=== PATIENT | female | born 1950 | race Caucasian/White ===

== ENCOUNTER 2020-06-22 06:49 | Outpatient (NON) | payer MEDICARE, OTHER, SELFPAY ==
[2020-06-22 16:41] LABS: SARS-CoV-2 RNA PCR Negative
== END 2020-06-22 06:50 ==
PROVIDERS: Visit Provider Family Medicine
DX: R05 Cough (principal); Z20.828 Contact with and (suspected) exposure to other viral communicable diseases
CPT/HCPCS: 87635; C9803; U0003

== ENCOUNTER → 2020-07-15 08:25 | Outpatient (CLI) | payer MEDICARE, OTHER, SELFPAY ==
--- NOTE | ~2020-07-15 | US_ITS ---
EXAMINATION: US abdomen complete EXAM DATE: 07/15/2020 09:17 INDICATION: Left renal mass. TECHNIQUE: Multiple grayscale and Doppler images of the complete abdomen were obtained (by a technolo gist who performed the scan) and subsequently reviewed. Comparison is made to prior examination from 07/15/2016, kidney ultrasound. FINDINGS: The abdominal aorta is normal in caliber. Visualized portion IVC is patent. The pancreatic head a nd body are normal in appearance. The pancreatic tail is not visualized. The liver has normal echogenicity and contour. There are no focal liver lesions identified. There is no evidence of intrahepatic biliary duct dilation. Portal venous flow was seen in the hepatopedal , normal direction and has normal Doppler waveform. Common bile duct measures 9 mm, which is normal for postcholecystectomy status. The gallbladder sarah a is unremarkable. Right kidney: There is normal contour and echogenicity. It measures 8.0 x 4.0 x 4.1 centimeters. T here are no focal renal lesions identified. There is no hydronephrosis. Left kidney: There is normal contour and echogenicity. It measures 8.7 x 5.4 x 4.6 centimeters. Th ere are no focal renal lesions identified. There is no hydronephrosis. The spleen measures 8.2 x 3.2 centimeters and is morphologically normal. IMPRESSION: Unremarkable complete abdominal ultrasound exam. Reviewed, dictated and finalized at location A.
== END ==
PROVIDERS: PCP Family Medicine; Visit Provider Family Medicine
DX: E27.8 Other specified disorders of adrenal gland (principal)
CPT/HCPCS: 76700

== ENCOUNTER 2021-08-16 16:55 | Outpatient (CLI) | payer MEDICARE, OTHER, SELFPAY ==
--- NOTE | ~2021-08-16 | MM_ITS ---
EXAMINATION: MM screening lalita BI w valencia HISTORY: Screening TECHNIQUE: Craniocaudal and mediolateral oblique 3-D tomosynthesis images were obtained and synthetic 2-D images were generated. CAD analysis was submitted and interpreted. COMPARISON: Comparison to multiple prior studies sequentially, with oldest reviewed study dated 05/03. BREAST PARENCHYMAL COMPOSITION: There are scattered areas of fibroglandular density. FINDINGS: There is no evidence of suspicious mass, calcification, or architectural distortion to sugg est malignancy in either breast. There has been no suspicious interval change. IMPRESSION: 1. No mammographic evidence of malignancy. 2. Recommend routine screening mammography in one year. BI-RADS Category 1: Negative Reviewed, dictated and finalized at location A.
== END 2021-08-16 16:56 | disposition home or self-care (01) ==
LOC: ANHIMG 16:57
PROVIDERS: PCP Family Medicine; Visit Provider Family Medicine
DX: Z12.31 Encounter for screening mammogram for malignant neoplasm of breast (principal)
CPT/HCPCS: 77063; 77067

== ENCOUNTER 2022-11-28 16:10 | Outpatient (CLI) | payer MEDICARE, SELFPAY ==
--- NOTE | ~2022-11-28 | MM_ITS ---
EXAMINATION: MM screening lalita BI w valencia HISTORY: Screening mammogram TECHNIQUE: Craniocaudal and mediolateral oblique 3-D tomosynthesis images were obtained and synthetic 2-D images were generated. CAD analysis was submitted and interpreted. COMPARISON: 08/2021, 08/01/2019, 07/08/2018 bilateral screening mammogram examinations BREAST PARENCHYMAL COMPOSITION: There are scattered areas of fibroglandular density. FINDINGS: There is no evidence of suspicious mass, calcification, or architectural distortion to sugg est malignancy in either breast. There has been no suspicious interval change. IMPRESSION: 1. No mammographic evidence of malignancy. 2. Recommend routine screening mammography in one year. BI-RADS Category 1: Negative Reviewed, dictated and finalized at location A. NTIFIC WRITER
== END 2022-11-28 16:11 | disposition home or self-care (01) ==
PROVIDERS: PCP Family Medicine; Visit Provider Family Medicine
DX: Z12.31 Encounter for screening mammogram for malignant neoplasm of breast (principal)
CPT/HCPCS: 77063; 77067

== ENCOUNTER 2023-01-08 07:51 | Outpatient (CLI) | payer MEDICARE, SELFPAY ==
--- NOTE | ~2023-01-08 | DEXA_ITS ---
Bone Density Report Name: EVELINA DÍAZ Age: 72 Sex: Female Ethnicity: White Date of : 1950 Indication: postmenopausal; screening for osteoporosis; height loss; hysterectomy; Referring Provider: MAXIMILIANO, SELINA Orellana Study: Bone densitometry was performed. Exam Date: January 08, 2023 Accession number: [id number] Bone Density: Region BMD T-score Z-score Classification AP Spine(L1, L2) 1.049 0.6 2.7 Normal Femoral Neck (Left) 0.591 -2.3 -0.4 Osteopenia Total Hip (Left) 0.834 -0.9 0.7 Normal Femoral Neck (Right) 0.663 -1.7 0.2 Osteopenia Total Hip (Right) 0.859 -0.7 0.9 Normal Total Hip Mean 0.847 -0.8 0.8 Normal World Health Organization criteria for BMD impression classify patients as: Normal (T-score at or above -1.0), Osteopenia (T-score between -1.0 and -2.5), or Osteoporosis (T-score at or below -2.5). 10-year Fracture Risk(1): Major Osteoporotic Fracture 13% Hip Fracture 2.9% Reported Risk Factors: [place] (), Neck BMD=0.591, BMI=34.2 (1) FRAX(R) Version 3.08. Fracture probability calculated for an untreated patient. Fracture probability may be lower if the patient has received treatment. Previous Exams: Region Exam Age BMD T-score BMD Change BMD Change Date g/cm2 vs Baseline vs Previous Total Hip(Left) 01/08/2023 72 0.834 -0.9 -0.044 (-5.0%) -0.044 (-5.0%) 07/15/2019 69 0.878 -0.5 Total Hip(Right) 01/08/2023 72 0.859 -0.7 0.001 (0.1%) 0.001 (0.1%) 07/15/2019 69 0.859 -0.7 *Denotes significance at 95% confidence level, LSC for Total Hip = 0.027 g/cm2 Clinical Information Provided by Patient: Has the following medical conditions: Hysterectomy Patient maximum height was 66 Menopause Age: 29 No regular weight bearing exercise Does not regularly consume dairy products Drinks caffeinated beverages Onset of menses at age 12 Number of children 1 Impression: The patient has low bone mass, based on the Left Femoral Neck T-score. The patient has an estimated ten-year risk of hip fracture of 2.9% and an estimated ten-year risk of major fracture of 13%, based on the WHO FRAX algorithm. The BMD for the Total Hip(Left) decreased, changing by -5.0% since the last DXA exam. Discussion: BONE DENSITY IS LOW AT ONE OR MORE SKELETAL SITES. This patient's lowest T-score is low at one or more skeletal sites. It meets the World Health Organization's (WHO) criteria for ?low bone mass? (T-score between -1.0 and -2.5). The patient'
== END 2023-01-08 07:52 | disposition home or self-care (01) ==
LOC: ANHIMG 07:56
PROVIDERS: PCP Family Medicine; Visit Provider Family Medicine
DX: Z78.0 Asymptomatic menopausal state (principal); M85.852 Other specified disorders of bone density and structure, left thigh; M85.851 Other specified disorders of bone density and structure, right thigh
CPT/HCPCS: 77080

== ENCOUNTER 2023-02-14 16:00 | Outpatient (CLI) | payer MEDICARE, SELFPAY ==
--- NOTE | ~2023-02-14 | US_ITS ---
EXAMINATION: US carotid duplex BI DATE: 02/14/2023 17:12 INDICATION: Syncope and collapse. TECHNIQUE: Grayscale, color Doppler, and pulsed Doppler images of the cervical carotid arteries were obtained. The degree of vessel stenosis is placed in one of the following categories: normal, <50%, 5 0-69%, >=70% but less than near-occlusion, near-occlusion, or total occlusion. Note that percent sten osis relative to normal distal artery lumen diameter is indirectly measured from velocity measurement s as described by Deon, et al. Radiology 2003; 229:340-346. COMPARISON: Ultrasound 06/03/2019 FINDINGS: RIGHT: The right common carotid artery (CCA) peak systolic velocity (PSV) is 56 cm/s. The right internal car otid artery (ICA) PSV is 71 cm/s. The right ICA end-diastolic velocity (EDV) is 25 cm/s. The right IC A/CCA PSV ratio is 1.3. Grayscale and color Doppler images yield an estimate of <50% diameter reducti on from plaque in the ICA. There is antegrade flow in the right vertebral artery. LEFT: The left CCA PSV is 61 cm/s. The left ICA PSV is 70 cm/s. The left ICA EDV is 31 cm/s. The left ICA/C CA PSV ratio is 1.1. Grayscale and color Doppler images yield an estimate of <50% diameter reduction from plaque in the ICA. There is antegrade flow in the left vertebral artery. IMPRESSION: 1. <50% stenosis in the right internal carotid artery. 2. <50% stenosis in the left internal carotid artery. Reviewed, dictated and finalized at location A.
--- NOTE | ~2023-02-14 | MR_ITS ---
EXAMINATION: MR brain/brain stem wo con DATE: 02/14/2023 16:55 INDICATION: Syncope and collapse. TECHNIQUE: Magnetic resonance imaging (MRI) of the brain and brainstem was performed without intraven ous contrast. COMPARISON: Head CT 11/26/2011 FINDINGS: There are scattered areas of nonspecific increased T2-weighted signal intensity in the cere bral white matter. There is no intracranial hemorrhage, acute infarction, or abnormal intracranial ma ss lesion. The ventricles are normal in size. The paranasal sinuses are clear. There are likely snider es of ocular lens replacement surgeries. The mastoid air cells are normal. IMPRESSION: 1. Mild nonspecific cerebral white matter disease, which likely represents chronic small vessel ische yared disease. Reviewed, dictated and finalized at location A. IMPRESSION: 1. Mild nonspecific cerebral white matter disease, which likely represents prepress stripper brigido small vessel ischemic disease.
== END 2023-02-14 16:01 | disposition home or self-care (01) ==
PROVIDERS: PCP Family Medicine; Visit Provider Family Medicine
DX: I65.23 Occlusion and stenosis of bilateral carotid arteries (principal); R93.0 Abnormal findings on diagnostic imaging of skull and head, not elsewhere classified
CPT/HCPCS: 70551; 93880

== ENCOUNTER 2023-02-28 08:35 | Outpatient (CLI) | payer MEDICARE, SELFPAY ==
--- NOTE | 2023-02-28 | ECHO_ITS ---
Patient Info Name: Coretta Deluna Age: 72 years : 1950 Gender: Female Ht: 64 in Wt: 190 lbs BSA: 2.01 m2 HR: 58 bpm BP: 152 / 86 mmHg Heart Rhythm: Sinus Rhythm Exam Date: 02/28/2023 9:22 AM Exam Location: [facility] Patient Status: Outpatient Admit Date: 02/28/2023 Staff Ordering Physician: Foreign, Estella Orellana MD Earth Science Professor: Jackelyn Hernandez RDCS Attending Provider: Foreign, Estella Orellana MD Referring Physician: Foreign MERINO; Exam Type: CA echo doppler color flow Study Info Indications R55 - Syncope and collapse Complete two-dimensional, color flow and Doppler transthoracic echocardiogram is performed. Summary 1. Complete two-dimensional, color flow and Doppler transthoracic echocardiogram is performed. 2. Essentially unremarkable 2D Doppler echocardiogram. Left Ventricle Left ventricular chamber dimension is normal. Left ventricular systolic function is normal, estimated at 50-55%. The left ventricular diastolic function is normal. Right Ventricle Right ventricular chamber dimension is normal. Left Atria Left atrial chamber dimension is normal. Right Atria Right atrial chamber dimension is normal. Aortic Valve The aortic valve is normal. Pulmonic Valve The pulmonic valve is normal. Mitral Valve The mitral valve has normal leaflets. Tricuspid Valve The tricuspid valve leaflets are normal. Pericardium/Pleural The pericardium appears normal. Aorta The aortic root size at the sinus of Valsalva is normal. Left Ventricular Outflow Tract Name Value Normal LVOT 2D LVOT Diameter 1.7 cm LVOT Doppler LVOT Peak Gradient 3 mmHg LVOT Mean Gradient 2 mmHg LVOT VTI 24 cm LVOT VTI/AV VTI Ratio 0.7 LVOT Stroke Volume 57 ml LVOT CO 2.9 l/min LVOT CI 1.5 l/min/m2 Pulmonic Valve Name Value Normal RVOT Doppler RVOT Peak Gradient 1 mmHg PV Doppler PV Peak Gradient 3 mmHg Mitral Valve Name Value Normal MV Doppler MV Peak Gradient 4 mmHg MV Mean Gradient 1 mmHg MV Decel [place] 212 cm/s2 MV PHT 99 ms MV Area (PHT) 2.2 cm2 4.0-5.0 MV Area (Cont Eq VTI) 1.7 cm2 MV Diastolic Function MV E Peak Craig
== END 2023-02-28 08:36 | disposition home or self-care (01) ==
PROVIDERS: PCP Family Medicine; Visit Provider Family Medicine
DX: R55 Syncope and collapse (principal)
CPT/HCPCS: 93306

== ENCOUNTER → 2023-10-07 07:40 | Outpatient (CLI) | payer MEDICARE, SELFPAY ==
--- NOTE | ~2023-10-07 | US_ITS ---
US renal BI 10/07/2023 08:20 Procedure: Realtime transabdominal ultrasound of the kidneys and bladder. Indication: Abnormal blood chemistries. Comparison: 07/15/2020 Findings: Renal echotexture is normal bilaterally without hydronephrosis, contour deforming mass or r enal calculus. The right kidney measures 8.8 cm and left kidney measures 9.6 cm. Bladder within norm al limits. Impression: 1: Unremarkable renal ultrasound. No stones, masses or hydronephrosis. Reviewed, dictated and finalized at location L. PATIENT THERAPIST Impression: 1: Unremarkable renal ultrasound. No stones, masses or hydronephrosis.
== END ==
PROVIDERS: PCP Family Medicine; Visit Provider Internal Medicine Nephrology
DX: R79.89 Other specified abnormal findings of blood chemistry (principal); I10 Essential (primary) hypertension
CPT/HCPCS: 76775

== ENCOUNTER 2024-03-03 12:50 | Outpatient (CLI) | payer MEDICARE, SELFPAY ==
[2024-03-03 14:23] LABS: Anion Gap 6 mmol/L (4-12); Blood Urea Nitrogen 22 mg/dL (7-17); Calcium 8.9 mg/dL (8.4-10.2); Carbon Dioxide 28 mmol/L (22-30); Chloride 102 mmol/L (98-107); Estimated Glomerular Filt Rate 40; Glucose 85 mg/dL (65-110); Phosphorus 3.8 mg/dL (2.5-4.5); Potassium 3.4 mmol/L (3.4-5.0); Sodium 136 mmol/L (137-145)
[2024-03-03 14:23] LABS: Creatinine Urine 75.6 mg/dL
[2024-03-03 14:33] LABS: Parathyroid Intact 59.8 pg/mL (7.5-53.5)
[2024-03-03 14:39] LABS: Vitamin D 25 Hydroxy 29.6 ng/mL
[2024-03-03 15:03] LABS: Total Protein Urine Random < 5 mg/dL; Ur Ttl Prot Creatinine Ratio < 0.07 mg/mg (0-0.20)
== END 2024-03-03 12:51 | disposition home or self-care (01) ==
LOC: ANHLAB 12:55
PROVIDERS: PCP Nurse Practitioner Family; Visit Provider Internal Medicine Nephrology
DX: E55.9 Vitamin D deficiency, unspecified (principal); I12.9 Hypertensive chronic kidney disease with stage 1 through stage 4 chronic kidney disease, or unspecified chronic kidney disease; N18.32 Chronic kidney disease, stage 3b; N25.81 Secondary hyperparathyroidism of renal origin
CPT/HCPCS: 36415; 80069; 82306; 82570; 83970; 84156

== ENCOUNTER 2024-07-05 10:47 | Outpatient (CLI) | payer MEDICARE, SELFPAY ==
[2024-07-05 11:43] LABS: Albumin Level 4.1 g/dL (3.5-5.1); Anion Gap 10 mmol/L (4-12); Blood Urea Nitrogen 23 mg/dL (7-17); Calcium 9.3 mg/dL (8.4-10.2); Carbon Dioxide 28 mmol/L (22-30); Chloride 100 mmol/L (98-107); Estimated Glomerular Filt Rate 44; Glucose 88 mg/dL (65-110); Phosphorus 4.1 mg/dL (2.5-4.5); Potassium 3.3 mmol/L (3.4-5.0); Sodium 138 mmol/L (137-145)
[2024-07-05 11:44] LABS: Creatinine Urine 99.3 mg/dL; Total Protein Urine Random 6 mg/dL; Ur Ttl Prot Creatinine Ratio 0.06 mg/mg (0-0.20)
[2024-07-05 11:47] LABS: Cholesterol 233 mg/dL (0-200); HDL Direct 57 mg/dL; Triglycerides 136 mg/dL (<150)
[2024-07-05 12:01] LABS: LDL Cholesterol Direct 117 mg/dL
[2024-07-05 12:21] LABS: Thyroid Stimulating Hormone 0.805 uIU/mL (0.465-4.680)
== END 2024-07-05 10:48 | disposition home or self-care (01) ==
PROVIDERS: PCP Nurse Practitioner Family; Referring Provider Nurse Practitioner; Visit Provider Internal Medicine Nephrology
DX: E78.5 Hyperlipidemia, unspecified (principal); E03.9 Hypothyroidism, unspecified; I12.9 Hypertensive chronic kidney disease with stage 1 through stage 4 chronic kidney disease, or unspecified chronic kidney disease; N18.32 Chronic kidney disease, stage 3b
CPT/HCPCS: 36415; 80061; 80069; 82570; 84156; 84443

== ENCOUNTER 2024-10-20 13:25 | Outpatient (CLI) | payer MEDICARE, SELFPAY ==
[2024-10-20 14:13] LABS: Creatinine Urine 231.1 mg/dL
[2024-10-20 14:15] LABS: Total Protein Urine Random < 5 mg/dL; Ur Ttl Prot Creatinine Ratio < 0.02 mg/mg (0-0.20)
[2024-10-20 14:22] LABS: Complement C3 125 mg/dL (88-165)
[2024-10-20 14:27] LABS: Albumin Level 4.2 g/dL (3.5-5.1); Anion Gap 7 mmol/L (4-12); Blood Urea Nitrogen 30 mg/dL (7-17); Calcium 9.1 mg/dL (8.4-10.2); Carbon Dioxide 30 mmol/L (22-30); Chloride 102 mmol/L (98-107); Estimated Glomerular Filt Rate 38; Glucose 90 mg/dL (65-110); Phosphorus 4.3 mg/dL (2.5-4.5); Potassium 3.9 mmol/L (3.4-5.0); Sodium 139 mmol/L (137-145)
[2024-10-21 15:23] LABS: Creatinine, Random Urine 202 mg/dL (20-275); Total Prot/Creat ratio mg/mg 0.064 (0.024-0.184); Total Protein/Creatinine Ratio 64 mg/g creat (24-184)
[2024-10-22 04:38] LABS: Protein, Total 6.7 g/dL (6.1-8.1)
[2024-10-23 11:58] LABS: ANCA Screen NEGATIVE (NEGATIVE)
[2024-10-23 16:34] LABS: Anti Glomerular Basement Memb <1.0 AI
== END 2024-10-20 13:26 | disposition home or self-care (01) ==
PROVIDERS: PCP Family Medicine; Visit Provider Internal Medicine Nephrology
DX: R79.89 Other specified abnormal findings of blood chemistry (principal); I12.9 Hypertensive chronic kidney disease with stage 1 through stage 4 chronic kidney disease, or unspecified chronic kidney disease; N18.32 Chronic kidney disease, stage 3b; Z94.0 Kidney transplant status
CPT/HCPCS: 36415; 80069; 82570; 83520; 84155; 84156; 84165; 84166; 86036; 86038; 86039; 86160; 86225

== ENCOUNTER 2025-01-12 12:34 | Outpatient (CLI) | payer MEDICARE, SELFPAY ==
[2025-01-12 13:25] LABS: Hematocrit 39.9 % (37.0-47.0); Hemoglobin 12.7 g/dL (12.0-15.0); Mean Corpuscular HGB Conc 31.8 g/dl (32-36); Mean Corpuscular Hemoglobin 29.7 pg (26-34); Mean Corpuscular Volume 93.4 fl (80-100); Mean Platelet Volume 11.1 fl (7.4-10.4); Platelet Count Result 211 k/mm3 (150-375); Red Blood Count 4.27 M/mm3 (4.2-5.4); Red Cell Distribution Width 13.1 % (11.5-14.5); White Blood Count 7.2 K/mm3 (4.5-10.0)
[2025-01-12 13:37] LABS: Alanine Aminotransferase 20 U/L (6-35); Albumin Level 4.1 g/dL (3.5-5.1); Alkaline Phosphatase 81 U/L (38-126); Anion Gap 11 mmol/L (4-12); Aspartate Amino Transferase 22 U/L (14-36); Bilirubin,Total 1.2 mg/dL (0.2-1.3); Blood Urea Nitrogen 29 mg/dL (7-17); Calcium 9.2 mg/dL (8.4-10.2); Carbon Dioxide 25 mmol/L (22-30); Chloride 102 mmol/L (98-107); Cholesterol 157 mg/dL (0-200); Estimated Glomerular Filt Rate 40; Glucose 86 mg/dL (65-110); HDL Direct 65 mg/dL; Phosphorus 4.3 mg/dL (2.5-4.5); Potassium 4.1 mmol/L (3.4-5.0); Sodium 138 mmol/L (137-145); Triglycerides 75 mg/dL (<150)
--- OUTSIDE RECORDS SUMMARY | 2025-01-12 13:44 | XMS_ITS | Clinical Summary ---
Author Organization [facility] Address [address] [place] [address] Care Team Providers Care Production Line Assembler Name Role Phone Alexandr Caro MD Primary Care Provider [phone] Source Comments [facility],non-owned Affiliates and Associated Physician Practices is amultiple site organization consisting of ambulatory clinics and hospital sitesin [place], [place], [place] and [place]. This disclosure is being madepursuant to the Care Everywhere program and may not contain all information available regarding this patient. Last updated 18.[facility] Allergies Active Allergy Reactions Criticality Noted Date Comments Clarithromycin Urticaria Medium 11/27/2017 Hydrocodone Urticaria Medium 11/27/2017 Atorvastatin Rash Medium 11/27/2017 Medications * Be aware that medications may not be up to date on this document. Alwaysverify current medications with the patient. Medication Sig Dispensed Refills Start Date End Date Status DICLOFENAC PO Active EZETIMIBE PO Active LEVOTHYROXINE SODIUM PO Active amLODIPine-valsartan -hctz (EXFORGE HCT) 5-160-25 MG tablet Take 1 tablet by mouth once daily Active benzonatate (TESSALON) 100 MG capsuleIndications:C ough Take 1 capsule by mouth 3 times daily as needed for Cough Reasons: Cough 30 capsule 03/26/2018 Active Social History Tobacco Use Types Packs/Day Years Used Date Smoking Tobacco: Former Smokeless Tobacco: Never Comments:quit 25 years ago Sex and Gender Information Value Date Recorded Sex Assigned at Not on file Gender Identity Not on file Sexual Orientation Not on file Last Filed Vital Signs Vital Sign Reading Time Taken Comments Blood Pressure 118/70 03/26/2018 9:46 AM CDT Pulse 56 03/26/2018 9:46 AM CDT Temperature 36.7 C (98.1 F) 03/26/2018 9:46 AM CDT Respiratory Rate 16 03/26/2018 9:46 AM CDT Oxygen Saturation 97% 03/26/2018 9:46 AM CDT Inhaled Oxygen Concentration - - Weight 88.5 kg (195 lb) 03/26/2018 9:46 AM CDT Height 165.1 cm (5' 5 ) 03/26/2018 9:46 AM CDT Body Mass Index 32.45 03/26/2018 9:46 AM CDT Plan of Treatment Health Maintenance Due Date Last Done Comments BONE DENSITY TESTING 1950 COLOGUARD (AGES 45-75) - COL ON CA SCREENING 1950 COLON MONITORING 1950 COLONOSCOPY - COLON CA SCREENING 1950 CT COLONOGRAPHY - COLON CA SCREENING 1950 Colorectal Cancer Screening 1950 FIT - COLON CA SCREENING 1950 FLEX SIG - COLON CA SCREENING 1950 LIPID TESTING 1950 MAMMOGRAM 1950 HEPATITIS C SCREENING 03/06/1969 DTAP/TDAP/TD VACCINES (1 - Tdap) 1970 PNEUMOCOCCAL VACCINE 50+ (1 of 1 - PCV) 2001 ZOSTER VACCINE (1 of 2) 2001 SCREENING FOR DIABETES 11/27/2017 COVID-19 VACCINE ( - 2023-2 5 season) 2024 INFLUENZA VACCINE (#1) 2024 DEPRESSION SCREENING 10/13/2024 Respiratory Syncytial Virus (RSV) Vaccine Pt: or over 60 yrs (1 - 1-dose 75+ series) 2026 HEPATITIS B VACCINE Aged Out No longe r eligible based on patient's age to complete this topic HIB VACCINE Aged Out No longer eligi ble based on patient's age to complete this topic HPV VACCINE Aged Out No longer eligi ble based on patient's age to complete this topic MENINGOCOCCAL (Group B) VACC INE SHARED DECISION-MAKING Aged Out No longer eligibl e based on patient's age to complete this topic MENINGOCOCCAL GROUPS A/C/Y/W VACCINE Aged Out No longer eligible b ased on patient's age to complete this topic Care Teams Production Line Assembler Relationship Specialty Start Date End Date Alexandr Caro MD [address] [place] [address] PCP - General Internal Medicine 11/27/17
--- OUTSIDE RECORDS SUMMARY | 2025-01-12 13:44 | XMS_ITS | Clinical Summary ---
Author Organization [facility] [place] [address] Address [address] [place] [address] Care Team Providers Care Transfer And Pumphouse Operator Name Role Phone Carlos Terry MD Primary Care Provider Allergies Active Allergy Reactions Criticality Noted Date Comments Atorvastatin Unknown 09/08/2023 Clarithromycin Hydrocodone Other (See comments),Urticaria High 11/[address] (VOLTAREN) 75 mg EC tablet Take 37.5 mg by mouth daily 021 Active valsartan (DIOVAN) 160 mg tablet 021 Active HYDROcodone-acetaminoph en (NORCO) 5-325 mg per tablet Take 1 tablet by mouth every 6 (six) hours as needed 021 Active rosuvastatin (CRESTOR) 5 mg tabletIndications:Pure hypercholesterolemia Take 1 tablet (5 mg total) by mouth daily 90 tablet 3 021 2024 Active Additional Information Patient not taking.Reported on 09/13/2024 indapamide (LOZOL) 1.25 mg tabletIndications:Essen tial hypertension Take 1 tablet (1.25 mg total) by mouth every morning 30 tablet 11 [address] (PROTONIX) 20 mg EC tablet Take 1 tablet (20 mg total) by mouth daily Active levothyroxine (SYNTHROID) 75 mcg tablet Take 1 tablet (75 mcg total) by mouth bottle booth attendant before breakfast Active Active Problems Problem Noted Date Diagnosed Date Pure hypercholesterolemia 02/26/2021 Other chest pain 01/15/2021 Essential hypertension 01/15/2021 Lipid screening 01/15/2021 TAM (dyspnea on exertion) 01/15/2021 Abnormal EKG 01/15/2021 Encounters Date Type Department Care Team Description 10/28/2024 Orders Only [facility] [address] [place] [address] Carlos Cotton MD from Last 3 Months Surgical History Surgery Date Site/Laterality Comments KNEE SURGERY HYSTERECTOMY SHOULDER SURGERY HAND SURGERY Medical History Medical History Date Comments Hypertension Thyroid disease Gallstones Wears dentures Family History Medical History Relation Name Comments Heart disease Brother Heart attack Father Cancer Mother Heart disease Sister Relation Name Status Comments Brother Alive Father (Age 65) Mother (Age 65) Sister Alive Social History Tobacco Use Types Packs/Day Years Used Date Smoking Tobacco: Former Smokeless Tobacco: Never Tobacco Cessation:Counseling Given: Not Answered Comments Unknown Sex and Gender Information Value Date Recorded Sex Assigned at Not on file Legal Sex Female 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 Gender Identity Not on file Sexual Orientation Not on file Obstetrics History Last Filed Vital Signs Vital Sign Reading Time Taken Comments Blood Pressure 110/70 09/13/2024 12:05 PM FINANCIAL INSTITUTION BRANCH MANAGER Pulse 66 09/13/2024 12:05 PM FINANCIAL INSTITUTION BRANCH MANAGER Temperature - - Respiratory Rate 18 09/13/2024 12:05 PM FINANCIAL INSTITUTION BRANCH MANAGER Oxygen Saturation 98% 03/03/2023 8:11 AM CDT Inhaled Oxygen Concentration - - Weight 82.6 kg (182 lb) 09/13/2024 12:05 PM FINANCIAL INSTITUTION BRANCH MANAGER Height 162.6 cm (5' 4 ) 09/13/2024 12:05 PM FIN[employer]CIAL INSTITUTION BRANCH MANAGER Body Mass Index 31.24 09/13/2024 12:05 PM FINANCIAL INSTITUTION BRANCH MANAGER Plan of Treatment Health Maintenance Due Date Last Done Comments Breast Cancer Screening-Mammogram 1950 Colon Cancer Screening-Colonoscopy 1950 Depression Screening 1950 Fall Risk Assessment 1950 Hepatitis C Screening 1950 Osteoporosis Screening-Bone Density Scan 1950 DTaP/Tdap/Td Vaccine (1 - Tdap) 1962 Hepatitis B Screening 1969 Zoster Vaccine (1 of 2) 2001 Pneumococcal vaccine 65+ (2 of 2 - PCV) 11/30/2015 11/30/2014 Well Visit 65+ 2016 Influenza Vaccine (Season Ended) 2025 07/11/2020, 08/03/2019, 07/18/2018, Additional history exists Procedures Procedure Name Priority Date/Time Associated Diagnosis Comments SCAN - LABS 10/28/2024 3:43 AM FINANCIAL INSTITUTION BRANCH MANAGER from Last 3 Months Results * SCAN - LABS (10/28/2024 3:43 AM FINANCIAL INSTITUTION BRANCH MANAGER) us Carlos Cotton MD Final Result from Last 3 Months Insurance MEDICARE ADVANTAGE [facility] MEDIC[facility] Address: [id number] [place] [address] [employer] MEDICARE ADVANTAGE [facility] MEDICARE Address: [address] [address] [place] [address] Care Teams Transfer And Pumphouse Operator Relationship Specialty Start Date End Date Carlos Terry MD [facility] [place] [address] PCP - General Family Medicine 09/13/24
--- OUTSIDE RECORDS SUMMARY | 2025-01-12 13:44 | XMS_ITS | Data Portability ---
Author Organization [place] - [facility], Main Office Address [address] [place] [address] Assessment No assessment recorded. Plan of Treatment Reminders Order Date Submit Date Provider Last Modified By Organization Details Last Modified Time Details Appointments None recorded. Lab unlisted lab - urine drug abuse panel 10 2023 024 [email or web address] 4 [facility] (Lab), [address] [place], [address], 16:35:15 TSH, serum or plasma 2023 024 [email or web address] [facility] (Lab), [address] [place], [address], 4 10:28:30 lipid panel, serum 2023 024 [email or web address] 4 [facility] (Lab), [address] [place], [address], 4 12:43:55 hepatic function panel, serum 2023 024 [id number] 4 [facility] (Lab), [address] [place], [address], 4 12:44:12 lipid panel, serum 2023 024 [email or web address] 4 [facility] (Lab), [address] [place], [address], 4 12:43:06 hepatic function panel, serum 2023 024 [id number] 4 [facility] (Lab), [address] [place], [address], 4 12:43:22 HbA1c (hemoglobin A1c), blood 2023 024 [id number] 4 [facility] (Lab), [address] [place], [address], 4 12:44:44 vitamin D3, 25-hydroxy, serum 2023 024 [id number] 4 [facility] (Lab), [address] [place], [address], 12:44:27 CBC w/ auto diff 2023 024 [id number] 4 [facility] (Lab), [address] [place], [address], 12:41:37 BMP, serum or plasma 2023 024 [email or web address] 4 [facility] (Lab), [address] [place], [address], 12:42:49 TSH, serum or plasma 2023 024 [email or web address] 4 [facility] (Lab), [address] [place], [address], 12:43:39 Referral pain management referral - Please call patient to schedule an appointment . Thank you. 2023 024 [email or web address] Devonte Mao, [address] [facility] [address], [place], [address], 09:22:[address] referral - Please call patient to schedule an appointment . Thank you. 2023 024 [email or web address] [facility], [address] [place], [address], 09:19:42 Procedures None recorded. Surgeries None recorded. Imaging None recorded. Medication Orders hydrocodone 5 mg-acetamin ophen 325 mg tablet 2023 024 MAGALIE [facility], [address], [place] [address], [place], [place], [id number], 11:45:23 Patient TargetsNo targets recorded. Patient InstructionsNo instructions recorded. 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 Thank you. Referring Physician: Raul Bravo [facility], Encounter Date: 03/19/2024 Pain Management Referral for Degeneration of lumbar intervertebral disc degeneration lumbar disc Please call patient to schedule an appointment. Thank you. Referring Physician: Raul Bravo [facility], Encounter Date: 03/19/2024 Results Created Date Observation Date Name Description Value Unit Range Abnormal Flag Note LastModifiedBy Organization Detail LastModifiedTime 12/19/1912/19/2023 CBC/C OMPLE TE BLD COUNT W/DIF F white blood cells 5.8 x10'3 /uL 4.2-10 .8 Not Available [facility] (Lab) [address] [place], [address], 12/19/2023 22:25:34 12/19/19 24 12/19/2023 CBC/C OMPLE TE BLD COUNT W/DIF F red blood cells 4.45 x10'6 /uL 3.80-5 .20 Not Available [facility] (Lab) [address] [place], [address], 12/19/2023 22:25:34 12/19/19 24 12/19/2023 CBC/C OMPLE TE BLD COUNT W/DIF F hemoglobin 13.4 g/dL 12.0-1 5.6 Not Available [facility] (Lab) [address] [place], [address], 12/19/2023 22:25:34 12/19/19 24 12/19/2023 CBC/C OMPLE TE BLD COUNT W/DIF F hematocrit 41.2 % 35.7-4 5.7 Not Available [facility] (Lab) [address] [place], [address], 12/19/2023 22:25:34 12/19/19 24 12/19/2023 CBC/C OMPLE TE BLD COUNT W/DIF F mean red cell volume 92.6 fL 82.0-9 9.0 Not Available [facility] (Lab) [address] [place], [address], 12/19/2023 22:25:34 12/19/19 24 12/19/2023 CBC/C OMPLE TE BLD COUNT W/DIF F mean red cell hemoglobin 30.1 pg 27.0-3 3.0 Not Available [facility] (Lab) [address] [place], [address], 12/19/2023 22:25:34 12/19/19 24 12/19/2023 CBC/C OMPLE TE BLD COUNT W/DIF F mean RBC HGB concentratio n 32.5 g/dL 31.0-3 6.0 Not Available [facility] (Lab) [address] [place], [address], 12/19/2023 22:25:34 12/19/19 24 12/19/2023 CBC/C OMPLE TE BLD COUNT W/DIF F red cell distribution width 13.0 % 11.8-1 5.5 Not Available [facility] (Lab) [address] [place], [address], 12/19/2023 22:25:34 12/19/19 24 12/19/2023 CBC/C OMPLE TE BLD COUNT W/DIF F platelets 207 x10'3 /uL 150-40 0 Not Available [facility] (Lab) [address] [place], [address], 12/19/2023 22:25:34 12/19/19 24 12/19/2023 CBC/C OMPLE TE BLD COUNT W/DIF F mean platelet volume 13.1 fL 9.0-12 .4 high Not Available [facility] (Lab) [address] [place], [address], 12/19/2023 22:25:34 12/19/19 24 12/19/2023 CBC/C OMPLE TE BLD COUNT W/DIF F neutrophils 63.1 % 39.0-7 2.0 Not Available [facility] (Lab) [address] [place], [address], 12/19/2023 22:25:34 12/19/19 24 12/19/2023 CBC/C OMPLE TE BLD COUNT W/DIF F lymphocytes 24.9 % 16.0-4 7.0 Not Available [facility] (Lab) [address] [place], [address], 12/19/2023 22:25:34 12/19/19 24 12/19/2023 CBC/C OMPLE TE BLD COUNT W/DIF F monocytes 7.5 % 5.0-12 .0 Not Available [facility] (Lab) [address] [place], [address], 12/19/2023 22:25:34 12/19/19 24 12/19/2023 CBC/C OMPLE TE BLD COUNT W/DIF F eosinophils 3.3 % 1.0-7. 0 Not Available [facility] (Lab) [address] [place], [address], 12/19/2023 22:25:34 12/19/19 24 12/19/2023 CBC/C OMPLE TE BLD COUNT W/DIF F basophils 1.0 % 0.0-2. 0 Not Available [facility] (Lab) [address] [place], [address], 12/19/2023 22:25:34 12/19/19 24 12/19/2023 CBC/C OMPLE TE BLD COUNT W/DIF F immature granulocytes 0.2 % 0.00-0 .50 Not Available [facility] (Lab) [address] [place], [address], 12/19/2023 22:25:34 12/19/19 24 12/19/2023 CBC/C OMPLE TE BLD COUNT W/DIF F neutrophils, absolute count 3.68 x10'3 /uL 1.5-8. 0 Not Available [facility] (Lab) [address] [place], [address], 12/19/2023 22:25:34 12/19/19 24 12/19/2023 CBC/C OMPLE TE BLD COUNT W/DIF F lymphocytes, absolute count 1.45 x10'3 /uL 1.07-3 .43 Not Available [facility] (Lab) [address] [place], [address], 12/19/2023 22:25:34 12/19/19 24 12/19/2023 CBC/C OMPLE TE BLD COUNT W/DIF F monocytes, absolute count 0.44 x10'3 /uL 0.29-0 .99 Not Available [facility] (Lab) [address] [place], [address], 12/19/2023 22:25:34 12/19/19 24 12/19/2023 CBC/C OMPLE TE BLD COUNT W/DIF F eosinophils, absolute count 0.19 x10'3 /uL 0.02-0 .53 Not Available [facility] (Lab) [address] [place], [address], 12/19/2023 22:25:34 12/19/19 24 12/19/2023 CBC/C OMPLE TE BLD COUNT W/DIF F basophils, absolute count 0.06 x10'3 /uL 0.01-0 .08 Not Available [facility] (Lab) [address] [place], [address], 12/19/2023 22:25:34 12/19/19 24 12/19/2023 CBC/C OMPLE TE BLD COUNT W/DIF F immature granulocytes ,absolute 0.01 x10'3 /uL 0.00-0 .05 Not Available [facility] (Lab) [address] [place], [address], 12/19/2023 22:25:34 12/19/19 24 12/19/2023 CBC/C OMPLE TE BLD COUNT W/DIF F nucleated red blood cells 0.0 % -0 Not Available [facility] (Lab) [address] [place], [address], 12/19/2023 22:25:34 12/19/19 24 12/19/2023 CBC/C OMPLE TE BLD COUNT W/DIF F NRBC# 0.00 x10'3 /uL Not Available [facility] (Lab) [address] [place], [address], 12/19/2023 22:25:34 12/19/19 24 12/19/2023 CBC/C OMPLE TE BLD COUNT W/DIF F large platelets OCCASI ONAL Not Available [facility] (Lab) [address] [place], [address], 12/19/2023 22:25:34 12/19/19 24 12/19/2023 BASIC METAB OLIC PANEL sodium 138 mmol/ L 137-14 5 Not Available [facility] (Lab) [address] [place], [address], 12/19/2023 21:37:53 12/19/19 24 12/19/2023 BASIC METAB OLIC PANEL potassium 3.8 mmol/ L 3.5-5. 1 Not Available [facility] (Lab) [address] [place], [address], 12/19/2023 21:37:53 12/19/19 24 12/19/2023 BASIC METAB OLIC PANEL chloride 103 mmol/ L 98-107 Not Available [facility] (Lab) [address] [place], [address], 12/19/2023 21:37:53 12/19/19 24 12/19/2023 BASIC METAB OLIC PANEL carbon dioxide 29 mmol/ L 22-30 Not Available [facility] (Lab) [address] [place], [address], 12/19/2023 21:37:53 12/19/19 24 12/19/2023 BASIC METAB OLIC PANEL anion gap 9.8 mmol/ L 14-22 low Not Available [facility] (Lab) [address] [place], [address], 12/19/2023 21:37:53 12/19/19 24 12/19/2023 BASIC METAB OLIC PANEL glucose 86 mg/dL 70-99 Not Available [facility] (Lab) [address] [place], [address], 12/19/2023 21:37:53 12/19/19 24 12/19/2023 BASIC METAB OLIC PANEL BUN 24 mg/dL 8-19 high Not Available [facility] (Lab) [address] [place], [address], 12/19/2023 21:37:53 12/19/19 24 12/19/2023 BASIC METAB OLIC PANEL creatinine 1.17 mg/dL 0.66-1 .25 Not Available [facility] (Lab) [address] [place], [address], 12/19/2023 21:37:53 12/19/19 24 12/19/2023 BASIC METAB OLIC PANEL GFR 45 Refer ence Range : [employer] ge GFR Healt hy Adult : >60 mL/mi n/1.7 3 m2 Chron ic Kidne y Disea se: 15-60 mL/mi n/1.7 3 m2 Kidne y Failu re: <15/m L/min /1.73 m2 www.n iddk. nih.g ov The MDRD study equat ion has not been valid ated in child manuelito <18 years of age; pregn ant women ; the elder ly >85 years of age; or in some racia l or ethni c subgr oups, such as Hispa nics. Outsi de the valid ated claudia eters , estim ated GFR is less accur ate, requi ring clini deng judgm ent on a case- by-ca se basis . Clini deng inter preta tion for other races and ages must be made by the clini dheeraj. The MDRD study equat ion has not been valid ated for the evalu ation of serum creat inine relat ed to nutri tasneem l statu s or medic ation usage . For perso ns <18 years of age, a pedia tric GFR calcu lator is avail able on the [facility] websi te: https ://kera portillo.audie yu/liseth nieto s/julioo qi/gf r_cal culat or Not Available [facility] (Lab) [address] [place], [address], 12/19/2023 21:37:53 12/19/19 24 12/19/2023 BASIC METAB OLIC PANEL calcium 9.6 mg/dL 8.4-10 .2 Not Available [facility] (Lab) [address] [place], [address], 12/19/2023 21:37:53 12/19/19 24 12/19/2023 LIPID PANEL cholesterol 130 mg/dL 140-19 9 low NIH EDGAR NSUS RECOM MENDA TION FOR CLEOPATRA STERO L: ADULT CHILD LOW RISK: <200 <170 BORDE RLINE : <200- 239 ----- HIGH RISK: >240 >200 Not Available [facility] (Lab) [address] [place], [address], 12/19/2023 21:37:58 12/19/19 24 12/19/2023 LIPID PANEL triglyceride s 70 mg/dL 0-150 NIH EDGAR NSUS REPOR T RECOM MENDA TION FOR TRIGL YCERI THOR: ADULT CHILD LOW RISK: <150 ----- BODER LINE: 150-1 99 ----- HIGH RISK: >200 ----- Not Available [facility] (Lab) [address] [place], [address], 12/19/2023 21:37:58 12/19/19 24 12/19/2023 LIPID PANEL HDL cholesterol 64 mg/dL 40- Not Available [facility] (Lab) [address] [place], [address], 12/19/2023 21:37:58 12/19/19 24 12/19/2023 LIPID PANEL LDL cholesterol, calculated 52 mg/dL 0-130 NIH EDGAR NSUS REPOR T RECOM MENDA TIONS FOR LDL: ADULT CHILD LOW RISK <130 <110 (OPTI MAL LDL) <100 ----- BORDE RLINE : 130-1 59 ----- HIGH RISK: >160 >130 A TRIGL YCERI DE RESUL T >400 INVAL IDATE S THE CALCU LATIO N FOR LDL FRACT IONAT ION - THE LDL RESUL T WILL NOT BE REPOR MITESH. Not Available [facility] (Lab) [address] [place], [address], 12/19/2023 21:37:58 12/19/19 24 12/19/2023 HEPAT IC/LI MESSI PANEL alkaline phosphatase 80 U/L 38-126 Not Available [facility] (Lab) [address] [place], [address], 12/19/2023 21:38:00 12/19/19 24 12/19/2023 HEPAT IC/LI MESSI PANEL alanine aminotransfe rase 19 U/L 0-35 Not Available [facility] (Lab) [address] [place], [address], 12/19/2023 21:38:00 12/19/19 24 12/19/2023 HEPAT IC/LI MESSI PANEL aspartate aminotransfe rase 28 U/L 15-37 Not Available [facility] (Lab) [address] [place], [address], 12/19/2023 21:38:00 12/19/19 24 12/19/2023 HEPAT IC/LI MESSI PANEL bilirubin, total 1.00 mg/dL 0.20-1 .30 Not Available [facility] (Lab) [address] [place], [address], 12/19/2023 21:38:00 12/19/19 24 12/19/2023 HEPAT IC/LI MESSI PANEL bilirubin, conjugated (direct) 0.00 mg/dL 0.00-0 .30 Not Available [facility] (Lab) [address] [place], [address], 12/19/2023 21:38:00 12/19/19 24 12/19/2023 HEPAT IC/LI MESSI PANEL biliurubin,u ncong. (indirect) 0.70 mg/dL 0.00-1 .1 Not Available [facility] (Lab) [address] [place], [address], 12/19/2023 21:38:00 12/19/19 24 12/19/2023 HEPAT IC/LI MESSI PANEL total protein 6.8 g/dL 6.3-8. 2 Not Available [facility] (Lab) [address] [place], [address], 12/19/2023 21:38:00 12/19/19 24 12/19/2023 HEPAT IC/LI MESSI PANEL albumin 4.1 g/dL 3.0-4. 4 Not Available [facility] (Lab) [address] [place], [address], 12/19/2023 21:38:00 12/19/19 24 12/19/2023 HEPAT IC/LI MESSI PANEL globulin 2.7 g/dL 2.6-4. 2 Not Available [facility] (Lab) [address] [place], [address], 12/19/2023 21:38:00 12/19/19 24 12/19/2023 HEPAT IC/LI MESSI PANEL A/G ratio 1.5 ratio 1.0-2. 0 Not Available [facility] (Lab) [address] [place], [address], 12/19/2023 21:38:00 12/19/19 24 12/19/2023 HEMOG LOBIN A1C HA1C 5.5 % 4.0-6. 0 Diabe chen Scree epi Crite isi: <5.7% Consi stent with absen ce of diabe chen 5.7-6 .4% Consi stent with incre ased risk for diabe chen (pred iabet es) >OR=6 .5% Consi stent with diabe chen REFER ENCE: Diabe chen Care 2016, 39(Talley ppl.1 ):s13 -s22 Not Available [facility] (Lab) [address] [place], [address], 12/19/2023 22:16:48 12/19/19 24 12/19/2023 VITAM IN D 25-HY DROXY [id number] 26.1 NG/mL 30-100 low Vitam in D Statu s: Defic ient: <20 ng/mL Insuf ficie nt: 20-29 ng/mL Suffi cient : 30-10 0 ng/mL Not Available [facility] (Lab) [address] [place], [address], 12/19/2023 22:19:02 12/19/19 24 12/19/2023 TSH thyroid-stim ulating hormone 0.134 uIU/m L 0.465- 4.680 low Not Available [facility] (Lab) [address] [place], [address], 12/19/2023 22:20:40 12/23/19 24 12/23/2023 URINA LYSIS COMPL ETE/I RIS W/RFX color LIGHT- YELLOW Not Available [facility] (Lab) [address] [place], [address], 12/23/2023 19:16:51 12/23/19 24 12/23/2023 URINA LYSIS COMPL ETE/I RIS W/RFX appear CLEAR Not Available [facility] (Lab) [address] [place], [address], 12/23/2023 19:16:51 12/23/19 24 12/23/2023 URINA LYSIS COMPL ETE/I RIS W/RFX specific gravity 1.012 1.001- 1.030 Not Available [facility] (Lab) [address] [place], [address], 12/23/2023 19:16:51 12/23/19 24 12/23/2023 URINA LYSIS COMPL ETE/I RIS W/RFX pH 5.0 pH_un its 5.0-9. 0 Not Available [facility] (Lab) [address] [place], [address], 12/23/2023 19:16:51 12/23/19 24 12/23/2023 URINA LYSIS COMPL ETE/I RIS W/RFX leukocytes NEGATI VE mikayla/u L negati ve- Not Available [facility] (Lab) [address] [place], [address], 12/23/2023 19:16:51 12/23/19 24 12/23/2023 URINA LYSIS COMPL ETE/I RIS W/RFX nitrite NEGATI VE negati ve- Not Available [facility] (Lab) [address] [place], [address], 12/23/2023 19:16:51 12/23/19 24 12/23/2023 URINA LYSIS COMPL ETE/I RIS W/RFX protein NEGATI VE mg/dL negati ve- Not Available [facility] (Lab) [address] [place], [address], 12/23/2023 19:16:51 12/23/19 24 12/23/2023 URINA LYSIS COMPL ETE/I RIS W/RFX glucose NORMAL mg/dL normal - Not Available [facility] (Lab) [address] [place], [address], 12/23/2023 19:16:51 12/23/19 24 12/23/2023 URINA LYSIS COMPL ETE/I RIS W/RFX ketones NEGATI VE mg/dL negati ve- Not Available [facility] (Lab) [address] [place], [address], 12/23/2023 19:16:51 12/23/19 24 12/23/2023 URINA LYSIS COMPL ETE/I RIS W/RFX urobilinogen NORMAL mg/dL normal - Not Available [facility] (Lab) [address] [place], [address], 12/23/2023 19:16:51 12/23/19 24 12/23/2023 URINA LYSIS COMPL ETE/I RIS W/RFX bilirubin NEGATI VE mg/dL negati ve- Not Available [facility] (Lab) [address] [place], [address], 12/23/2023 19:16:51 12/23/19 24 12/23/2023 URINA LYSIS COMPL ETE/I RIS W/RFX blood 0.03 mg/dL negati ve- abnormal Not Available [facility] (Lab) [address] [place], [address], 12/23/2023 19:16:51 12/23/19 24 12/23/2023 URINA LYSIS COMPL ETE/I RIS W/RFX white blood cells 0-8 /i??h pfi?? 0-8 Not Available [facility] (Lab) [address] [place], [address], 12/23/2023 19:16:51 12/23/19 24 12/23/2023 URINA LYSIS COMPL ETE/I RIS W/RFX red blood cells 0-4 /i??h pfi?? 0-4 Not Available [facility] (Lab) [address] [place], [address], 12/23/2023 19:16:51 12/23/19 24 12/23/2023 URINA LYSIS COMPL ETE/I RIS W/RFX bacteria NONE Not Available [facility] (Lab) [address] [place], [address], 12/23/2023 19:16:51 12/23/19 24 12/23/2023 URINA LYSIS COMPL ETE/I RIS W/RFX mucous OCCASI ONAL /i??l pfi?? abnormal Not Available [facility] (Lab) [address] [place], [address], 12/23/2023 19:16:51 12/23/19 24 12/23/2023 URINA LYSIS COMPL ETE/I RIS W/RFX squamous epithelial OCCASI ONAL /i??l pfi?? abnormal Not Available [facility] (Lab) [address] [place], [address], 12/23/2023 19:16:51 12/23/19 24 12/23/2023 URINA LYSIS COMPL ETE/I RIS W/RFX hyaline cast MODERA TE /i??l pfi?? none seen- abnormal Not Available [facility] (Lab) [address] [place], [address], 12/23/2023 19:16:51 01/15/20 24 01/15/2024 URINA LYSIS COMPL ETE/I RIS W/RFX color YELLOW Not Available [facility] (Lab) [address] [place], [address], 01/15/2024 18:58:39 01/15/20 24 01/15/2024 URINA LYSIS COMPL ETE/I RIS W/RFX appear EXTRA TURBID abnormal Not Available [facility] (Lab) [address] [place], [address], 01/15/2024 18:58:39 01/15/20 24 01/15/2024 URINA LYSIS COMPL ETE/I RIS W/RFX specific gravity 1.019 1.001- 1.030 Not Available [facility] (Lab) [address] [place], [address], 01/15/2024 18:58:39 01/15/20 24 01/15/2024 URINA LYSIS COMPL ETE/I RIS W/RFX pH 6.5 pH_un its 5.0-9. 0 Not Available [facility] (Lab) [address] [place], [address], 01/15/2024 18:58:39 01/15/20 24 01/15/2024 URINA LYSIS COMPL ETE/I RIS W/RFX leukocytes NEGATI VE mikayla/u L negati ve- Not Available [facility] (Lab) [address] [place], [address], 01/15/2024 18:58:39 01/15/20 24 01/15/2024 URINA LYSIS COMPL ETE/I RIS W/RFX nitrite NEGATI VE negati ve- Not Available [facility] (Lab) [address] [place], [address], 01/15/2024 18:58:39 01/15/20 24 01/15/2024 URINA LYSIS COMPL ETE/I RIS W/RFX protein 30 mg/dL negati ve- abnormal Not Available [facility] (Lab) [address] [place], [address], 01/15/2024 18:58:39 01/15/20 24 01/15/2024 URINA LYSIS COMPL ETE/I RIS W/RFX glucose NORMAL mg/dL normal - Not Available [facility] (Lab) [address] [place], [address], 01/15/2024 18:58:39 01/15/20 24 01/15/2024 URINA LYSIS COMPL ETE/I RIS W/RFX ketones NEGATI VE mg/dL negati ve- Not Available [facility] (Lab) [address] [place], [address], 01/15/2024 18:58:39 01/15/20 24 01/15/2024 URINA LYSIS COMPL ETE/I RIS W/RFX urobilinogen 2 mg/dL normal - abnormal Not Available [facility] (Lab) [address] [place], [address], 01/15/2024 18:58:39 01/15/20 24 01/15/2024 URINA LYSIS COMPL ETE/I RIS W/RFX bilirubin NEGATI VE mg/dL negati ve- Not Available [facility] (Lab) [address] [place], [address], 01/15/2024 18:58:39 01/15/20 24 01/15/2024 URINA LYSIS COMPL ETE/I RIS W/RFX blood 0.06 mg/dL negati ve- abnormal Not Available [facility] (Lab) [address] [place], [address], 01/15/2024 18:58:39 01/15/20 24 01/15/2024 URINA LYSIS COMPL ETE/I RIS W/RFX color YELLOW Not Available [facility] (Lab) [address] [place], [address], 01/15/2024 19:04:38 01/15/20 24 01/15/2024 URINA LYSIS COMPL ETE/I RIS W/RFX appear EXTRA TURBID abnormal Not Available [facility] (Lab) [address] [place], [address], 01/15/2024 19:04:38 01/15/20 24 01/15/2024 URINA LYSIS COMPL ETE/I RIS W/RFX specific gravity 1.019 1.001- 1.030 Not Available [facility] (Lab) [address] [facility] [place], [address], 01/15/2024 19:04:38 01/15/20 24 01/15/2024 URINA LYSIS COMPL ETE/I RIS W/RFX pH 6.5 pH_un its 5.0-9. 0 Not Available [facility] (Lab) [address] [place], [address], 01/15/2024 19:04:38 01/15/20 24 01/15/2024 URINA LYSIS COMPL ETE/I RIS W/RFX leukocytes NEGATI VE mikayla/u L negati ve- Not Available [facility] (Lab) [address] [place], [address], 01/15/2024 19:04:38 01/15/20 24 01/15/2024 URINA LYSIS COMPL ETE/I RIS W/RFX nitrite NEGATI VE negati ve- Not Available [facility] (Lab) [address] [place], [address], 01/15/2024 19:04:38 01/15/20 24 01/15/2024 URINA LYSIS COMPL ETE/I RIS W/RFX protein 30 mg/dL negati ve- abnormal Not Available [facility] (Lab) [address] [place], [address], 01/15/2024 19:04:38 01/15/20 24 01/15/2024 URINA LYSIS COMPL ETE/I RIS W/RFX glucose NORMAL mg/dL normal - Not Available [facility] (Lab) [address] [place], [address], 01/15/2024 19:04:38 01/15/20 24 01/15/2024 URINA LYSIS COMPL ETE/I RIS W/RFX ketones NEGATI VE mg/dL negati ve- Not Available [facility] (Lab) [address] [place], [address], 01/15/2024 19:04:38 01/15/20 24 01/15/2024 URINA LYSIS COMPL ETE/I RIS W/RFX urobilinogen 2 mg/dL normal - abnormal Not Available [facility] (Lab) [address] [place], [address], 01/15/2024 19:04:38 01/15/20 24 01/15/2024 URINA LYSIS COMPL ETE/I RIS W/RFX bilirubin NEGATI VE mg/dL negati ve- Not Available [facility] (Lab) [address] [place], [address], 01/15/2024 19:04:38 01/15/20 24 01/15/2024 URINA LYSIS COMPL ETE/I RIS W/RFX blood 0.06 mg/dL negati ve- abnormal Not Available [facility] (Lab) [address] [place], [address], 01/15/2024 19:04:38 01/15/20 24 01/15/2024 URINA LYSIS COMPL ETE/I RIS W/RFX white blood cells 0-8 /i??h pfi?? 0-8 Not Available [facility] (Lab) [address] [place], [address], 01/15/2024 19:04:38 01/15/20 24 01/15/2024 URINA LYSIS COMPL ETE/I RIS W/RFX red blood cells 5-10 /i??h pfi?? 0-4 abnormal Not Available [facility] (Lab) [address] [place], [address], 01/15/2024 19:04:38 01/15/20 24 01/15/2024 URINA LYSIS COMPL ETE/I RIS W/RFX bacteria FEW abnormal Not Available [facility] (Lab) [address] [place], [address], 01/15/2024 19:04:38 01/15/20 24 01/15/2024 URINA LYSIS COMPL ETE/I RIS W/RFX mucous FEW /i??l pfi?? abnormal Not Available [facility] (Lab) [address] [place], [address], 01/15/2024 19:04:38 01/15/20 24 01/15/2024 URINA LYSIS COMPL ETE/I RIS W/RFX squamous epithelial PACKED FIELD /i??l pfi?? abnormal Not Available [facility] (Lab) [address] [place], [address], 01/15/2024 19:04:38 01/15/20 24 01/15/2024 URINA LYSIS COMPL ETE/I RIS W/RFX hyaline cast PACKED FIELD /i??l pfi?? none seen- abnormal Not Available [facility] (Lab) [address] [place], [address], 01/15/2024 19:04:38 Result Notes None recorded. Problems Name Problem SNOMED Code Status Onset Date Resolution Date Notes Provider Name and Address Organization Details Recorded Time Disorder of thyroid gland 24277553 Active Not Available [facility] 3 12:48:53 Radiotherapy follow-up 957875417 Active Not Available [facility] 3 12:48:53 Asthma 004271738 Active Not Available [facility] 3 12:48:53 Microscopic hematuria 068668758 Active Not Available [facility] 3 12:48:53 Localized, primary osteoarthriti s of the hand 766446298 Active Not Available [facility] 3 12:48:53 Gastroesophag eal reflux disease 311542286 Active Not Available [facility] 3 12:48:53 Retention of urine 239270318 Active Not Available [facility] 3 12:48:53 Enthesopathy of hip region 01425860 Active Not Available [facility] 3 12:48:53 Osteopenia 832410624 Active 2018 DEXA 07/31 Not Available [facility] 3 12:48:54 Dyslipidemia 397053215 Active Not Available [facility] 3 12:48:54 Hypothyroidis m 26007701 Active 2018 Not Available [facility] 3 12:48:54 Urgent desire to urinate 02710411 Active Not Available [facility] 3 12:48:54 Degeneration of lumbar intervertebra l disc 32000083 Active 2022 Estella Carrasquillo MD [address], [address], [address] , [facility] [employer] [facility] 3 13:03:25 Syncope 800207845 Active 2022 Estella Carrasquillo MD [address] [address], [place], [address] , [employer] [facility] [employer] [facility] 3 17:20:07 Hyponatremia 28329319 Active 2022 Estella Carrasquillo MD [address], [address] , [facility] [employer] [facility] [employer] [facility] 3 07:34:33 Claustrophobi a 57348372 Active 2022 Estella Carrasquillo MD [address] [address], [place], [address] , [employer] [facility] 3 11:27:03 Palpitations 21905734 Active 2022 Estella Carrasquillo MD [address], [address], [place], [address] , [email or web address] [facility] 3 10:26:17 Serum creatinine above reference range 743976145 Active 2022 Estella Carrasquillo MD [address], [address], [place], [address] , [employer] [facility] [employer] [facility] [employer] 3 08:49:15 Essential hypertension 33511401 Active 2022 Estella Carrasquillo MD [address], [address], [place], [address] , [email or web address] [facility] [employer] 3 12:56:32 Hyperlipidemi a 90637593 Active 2022 Estella Carrasquillo MD [address], [address], [place], [address] , [employer] [facility] [employer] 3 13:04:41 Dizziness 769454645 Active 2022 Estella Carrasquillo MD [address], [address], [place], [address] , [employer] [facility] [employer] 3 10:24:14 Vitamin D deficiency 19012039 Active 2023 Estella Carrasquillo MD [address], [place], [address] , [employer] [facility] [employer] [facility] 4 11:34:03 Hyperglycemia 92078976 Active 2023 Estella Carrasquillo MD [address], [place], [address] , [employer] [facility] [employer] 4 11:35:53 Urinary incontinence 685582118 Active 2023 Estella Carrasquillo MD [address], [address], [place], [address] , [employer] [facility] [employer] [facility] 4 11:06:42 Blood in urine 79806918 Active 2023 Estella Carrasquillo MD [address] [facility], [address], [place], [address] , [employer] 4 07:52:51 Recurrent falls 180098943 Active 2023 Raul Bravo [employer] [address] [facility], [facility] [address], [place], [address] , [employer] 4 10:09:09 Skin lesion 97290566 Active 2023 Raul FonsecaJACOB mcfaddenP-C [address] [facility], [facility] [address], [place], [address] , [employer] 4 10:12:18 Problem Notes None recorded. Medical Equipment None Reported. Allergies Allergen ID Allergen Name Allergen Category Reaction Reaction Severity Criticality Documentation Date Start Date Code Code System Note Provider Name and Address Organization Details Recorded Time 81533 Lipitor medicatio n Not available Not available Not available 12/11/2022 50074 5 RxNorm Not Available [facility] 3 12:52:33 15476 hydrocodo ne Not available other severe Not available 12/11/2022 5489 RxNorm swell ing at the site of an opera tion Not Available [facility] 3 12:52:33 61367 Biaxin medicatio n hives severe Not available 12/11/2022 43909 9 RxNorm Not Available [facility] 3 12:52:33 09576 adhesive environme nt,medica tion Not available Not available Not available 12/11/2022 85627 UNK Not Available [facility] 3 12:52:33 Medications Name Sig Start Date Stop Date Status Note LastModified by Organization Details LastModified Time Prescriptio n - Renewal active Not Available Not Available Not Available amoxicillin 500 mg capsule TAKE 1 CAPSULE BY MOUTH EVERY 8 HOURS 04/08 completed Not Available Not Available Not Available prednisone 10 mg tablet 11/23 completed Not Available Not Available Not Available azithromyci n 250 mg tablet 11/23 completed Not Available Not Available Not Available indapamide 2.5 mg tablet TAKE 1 TABLET BY MOUTH ONCE DAILY active Not Available Not Available No t Available ibuprofen 800 mg tablet TAKE 1 TABLET BY MOUTH EVERY 8 HOURS 04/08 completed Not Available Not Available Not Available ofloxacin 0.3 % eye drops INSTILL 1 DROP INTO AFFECTED EYE 3 TIMES A DAY DIRECTED TO BEGIN 2 DAYS PRIOR TO SURGERY 04/12 completed Not Available Not Available Not Available fluconazole 150 mg tablet TK TWO TS PO Q WEEK 11/23 completed Not Available Not Available Not Available hydrocodone 5 mg-acetamin ophen 325 mg tablet TAKE 1 TABLET BY MOUTH EVERY 6 HOURS active Not Available Not Available No t Available acetaminoph en 300 mg-codeine 30 mg tablet Take 1 tablet every 6 hours by oral route. active Not Available Not Available No t Available amlodipine 5 mg tablet TAKE 1 TABLET BY MOUTH ONCE DAILY 04/12 completed Not Available Not Available Not Available omeprazole 40 mg capsule,del ayed release Take 1 capsule every day by oral route. 04/12 completed Not Available Not Available Not Available tramadol 50 mg tablet TK 1 TO 2 TS PO Q 4 TO 6 H PRN 12/20 completed Not Available Not Available Not Available triamcinolo ne acetonide 0.1 % topical cream active Not Available Not Available Not Available levothyroxi ne 75 mcg tablet TAKE 1 TABLET BY MOUTH ONCE DAILY active Not Available Not Available No t Available ketorolac 0.5 % eye drops INSTILL 1 DROP INTO THE OPERATIVE EYE 3 TIMES DAILY BEGINNING 2 DAYS BEFORE SURGERY 04/12 completed Not Available Not Available Not Available ciclopirox 8 % topical solution active Not Available Not Available Not Available levothyroxi ne 100 mcg tablet TAKE 1 TABLET DAILY - DOSAGE CHANGE, DISCONTIN UE LEVOTHYRO XINE 75MCG 09/09 completed Not Available Not Available Not Available terbinafine HCl 250 mg tablet TK 1 T PO QD 09/09 completed Not Available Not Available Not Available levothyroxi ne 88 mcg tablet TAKE 1 TABLET BY MOUTH DAILY 12/21 completed Not Available Not Available Not Available amoxicillin 875 mg tablet Take 1 tablet every 12 hours by oral route for 7 days. 03/31 completed Not Available Not Available Not Available prednisolon e acetate 1 % eye drops,suspe nsion INSTILL 1 DROP INTO AFFECTED EYE THREE TIMES A DAY TO BEGIN AFTER SURGERY 04/12 completed Not Available Not Available Not Available benzonatate 100 mg capsule TK 1 C PO TID PRF COUGH 12/02 completed Not Available Not Available Not Available hydrocodone 7.5 mg-acetamin ophen 325 mg tablet TK 1 T PO Q 4 H PRN P. 11/23 completed Not Available Not Available Not Available pantoprazol e 40 mg tablet,palomo yed release TAKE 1 TABLET BY MOUTH DAILY active Not Available Not Available No t Available Cipro 500 mg tablet Take 1 tablet every 12 hours by oral route for 2 days. 09/26 completed Not Available Not Available Not Available diclofenac sodium 75 mg tablet,palomo yed release TAKE 1 TABLET BY MOUTH TWICE DAILY NEEDED 12/18 completed Not Available Not Available Not Available hydroxyzine HCl 25 mg tablet active Not Available Not Available Not Available hydrochloro thiazide 25 mg tablet 1 po qday active Not Available Not Available Not Available cefuroxime axetil 500 mg tablet TK 1 T PO Q 12 H 11/23 completed Not Available Not Available Not Available methylpredn isolone 4 mg tablets in a dose pack TAKE BY MOUTH DIRECTED ON INSIDE OF PACKAGE 04/08 completed Not Available Not Available Not Available ketoconazol e 2 % topical cream active Not Available Not Available Not Available bromphenira mine-pseudo ephedrine-D M 2 mg-30 mg-10 mg/5 mL oral syrup Take 10 mL every 4 hours by oral route as needed for 3 days. 06/30 completed Not Available Not Available Not Available fluticasone propionate 50 mcg/actuati on nasal spray,suspe nsion [place] 1 spray every day by intranasa l route. 04/12 completed Not Available Not Available Not Available spironolact one 50 mg tablet TAKE 1 TABLET BY MOUTH ONCE DAILY active Not Available Not Available No t Available diazepam 5 mg tablet TAKE 1 TABLET BY MOUTH ONCE 60 MINUTES PRIOR TO MRI 12/18 completed Not Available Not Available Not Available amoxicillin 875 mg-potassiu m clavulanate 125 mg tablet 12/02 completed Not Available Not Available Not Available valsartan 160 mg tablet TAKE 1 TABLET BY MOUTH ONCE DAILY active Not Available Not Available No t Available rosuvastati n 5 mg tablet TAKE 1 TABLET EVERY DAY active Not Available Not Available No t Available bupropion HCl XL 150 mg 24 hr tablet, extended release 1 po qday 12/02 completed Not Available Not Available Not Available nitrofurant oin monohydrate /macrocryst als 100 mg capsule TAKE 1 CAPSULE BY MOUTH EVERY 12 HOURS FOR 7 DAYS 03/19 completed Not Available Not Available Not Available Vesicare 5 mg tablet Take 1 tablet every day by oral route for 14 days. 10/08 completed Not Available Not Available Not Available chlorhexidi ne gluconate 0.12 % mouthwash RINSE WITH 1 2 OUNCE TWICE DAILY FOR 30 SECONDS AVOID RINSING OR EATING FOR 30 MINUTES FOLLOWING TREATMENT (RINSE AFTER BREAKFAST AND DINNER) 04/10 completed Not Available Not Available Not Available melatonin 04/12 completed Not Available Not Available Not Available levothyroxi ne 11/23 completed Not Available Not Available Not Available Fish Oil 04/12 completed Not Available Not Available Not Available Exforge 04/10 completed Not Available Not Available Not Available GaviLyte-G 236 gram-22.74 gram-6.74 gram-5.86 gram oral solution 04/10 completed Not Available Not Available Not Available Saxenda 3 mg/0.5 mL (18 mg/3 mL) subcutaneou s pen injector 0.6 mg sc daily 08/14 completed Not Available Not Available Not Available Ozempic sample active Not Available Not Avail able Not Available Fluad 65yr up(PF)45 mcg(15 mcgx3)/0.5 mL intramuscul ar syringe ADM 0.5ML IM UTD 10/04 completed Not Available Not Available Not Available Fluzone High-Dose (PF) 180 mcg/0.5 mL intramuscul ar syringe ADM 0.5ML IM UTD 10/04 completed Not Available Not Available Not Available Rybelsus 3 mg tablet 1 po qday 04/28 completed Not Available Not Available Not Available Vitals Date Recorded Body height Body mass index (BMI) Body weight Body temperature Heart rate Systolic blood pressure Diastolic blood pressure Provider Name and Address Organization Details Last Updated DateTime 4 162.56 cm 31.2 kg/m2 05493.8 1 g 97.1 [degF] 66 /min 130 mm[Hg] 65 mm[Hg] [facility] [place] [employer] [facility] 4 11:12:44 Date Recorded Body height Provider Name an d Address Organization Details Last Updated DateTime 12/23/2023 162.56 cm JAIRO Momin Ana [facility] [employer] [facility] 12/23/2023 15:12:34 Date Recorded Body height Body mass index (BMI) Body weight Body temperature Heart rate Systolic blood pressure Diastolic blood pressure Provider Name and Address Organization Details Last Updated DateTime 162.56 cm 30.6 kg/m2 76033.4 4 g 96.6 [degF] 72 /min 122 mm[Hg] 72 mm[Hg] Chitra Spangler RN [facility] [employer] [facility] 4 09:59:40 Social History Question Answer Notes LastModified by Organizat ion Details LastModified Time Tobacco Smoking Status Former Smoker quit 1996 Not Available [facility] 12/11/2022 12:46:08 Do You Have An Advance Directive? No MIGRATION.[id number] Information not available 12/11/2022 What Is Your Level Of Alcohol Consumption? Occasional MIGRATION.86764 66476 Information not available 12/11/2022 Are You Blind Or Do You Have Difficulty Seeing? No Cataracts Removed, Reading Glasses MIGRATION.62417 [id number] Information not available 12/11/2022 What Is Your Level Of Caffeine Consumption? Moderate MIGRATION.94571 20498 Information not available 12/11/2022 How Much Tobacco Do You Chew? None MIGRATION.87278 91581 Information not available 12/11/2022 In The 14 Days Before Symptom Onset, Have You Had Close Contact With A Laboratory-confi rmed COVID-19 While That Case Was Ill? No MIGRATION.76499 16734 Information not available 12/11/2022 In The 14 Days Before Symptom Onset, Have You Had Close Contact With A Person Who Is Under Investigation For COVID-19 While That Person Was Ill? No MIGRATION.21426 76036 Information not available 12/11/2022 Are You Deaf Or Do You Have Serious Difficulty Hearing? No MIGRATION.88928 10666 Information not available 12/11/2022 What Type Of Diet Are You Following? REGULAR MIGRATION.41061 15425 Information not available 12/11/2022 Which Illicit Or Recreational Drugs Have You Used? No MIGRATION.79350 48118 Information not available 12/11/2022 Do You Or Have You Ever Used E-cigarettes Or Vape? 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 No MIGRATION.12330 55925 Information not available 12/11/2022 Do You Use Insect Repellent Routinely? Yes MIGRATION.06176 39220 Information not available 12/11/2022 Do You Have A Medical Power Of Mineral Resources Inspector? No MIGRATION.51715 24559 Information not available 12/11/2022 What Was The Date Of Your Most Recent Tobacco Screening? 04/12/2021 MIGRATION.24845 03505 Information not available 12/11/2022 Do You Have Smoke And Carbon Monoxide Detectors In Your Home? Yes Smoke Detectors MIGRATION.12288 58358 Information not available 12/11/2022 Do You Or Have You Ever Used Smokeless Tobacco? Never Used Smokeless Tobacco MIGRATION.93000 51120 Information not available 12/11/2022 Do You Use Sunscreen Routinely? Yes MIGRATION.65008 28132 Information not available 12/11/2022 Sex: Unknown Functional Status Question Answer Note LastModified by Systems Integrationizat ion Details LastModified Time Do you have difficulty walking or climbing stairs? No MIGRATION.[id number] 026 Information not available 12/11/2022 Do you have transportation difficulties? No MIGRATION.6315103 026 Information not available 12/11/2022 Are you able to walk? YESWOREST MIGRATION.4590832 026 Information not available 12/11/2022 Do you have difficulty doing errands alone? No MIGRATION.8939493 026 Information not available 12/11/2022 Are you able to care for yourself? Yes MIGRATION.1176550 026 Information not available 12/11/2022 Do you have difficulty dressing or bathing? No MIGRATION.9291507 026 Information not available 12/11/2022 What is your exercise level? Occasional MIGRATION.4891949 026 Information not available 12/11/2022 Mental Status Question Answer Note LastModified by Organizat ion Details LastModified Time Do you have difficulty concentrating, remembering or making decisions? No MIGRATION.[id number] 6 Information not available 12/11/2022 Family History Relationship Description Onset Age of this Age Resolved Age Notes LastModified by Organization Details LastModified Time Father Congestive heart failure MIGRATION.677 [id number] Not available 12/11/2022 12:46:29 Maternal Grandmother Congestive heart failure MIGRATION.766 [id number] Not available 12/11/2022 12:46:29 Brother Heart disease MIGRATION.343 [id number] Not available 12/11/2022 12:46:29 Sister Heart disease MIGRATION.584 [id number] Not available 12/11/2022 12:46:29 Sister Fibromyalgia MIGRATION.0 30 [id number] Not available 12/11/2022 12:46:29 Mother Malignant tumor of pancreas MIGRATION.299 [id number] Not available 12/11/2022 12:46:29 Medical History Condition Response BLINDNESS N RHEUMATIC FEVER N KIDNEY STONES N BLADDER PROBLEMS N MRSA N OTHER # 1 N POLIO N LUNG DISEASE/DISORDER N RADIATION / CHEMOTHERAPY N COPD N Other # 2 N BLOOD DISEASES N SURGERY N EAR OR HEARING PROBLEMS N MUMPS N FEMALE PROBLEMS / INFECTIONS N DEPRESSION (INCLUDING POST ) N BOWEL PROBLEMS N STROKE/TIA N THYROID DISEASE Y ULCERS N BENIGN PROSTATIC HYPERPLASIA N MEASLES N CERVICALGIA N TB SKIN TEST N MYOCARDIAL INFARCTION N PARAPELGIA N OBESITY N GERD/NAUSEA N ANEURYSM N URINARY/BLADDER/KIDNEY PROBLEMS N CORONARY ARTERY DISEASE (CAD) N MENIERE'S DISEASE N ADDICTION CONCERNS N ENDOMETRIOSIS N USE OF BLOOD THINNERS N SKIN PROBLEMS N EMPHYSEMA N GASTROINTESTINAL DISORDER N MUSCLE,JOINT OR BONE PROBLEMS N GASTROINTESTINAL BLEEDING N BLOOD CLOTS N ASTHMA N CATARACTS N ERECTILE DYSFUNCTION N GI PROBLEMS N CHF N Low Testosterone N NEUROPATHY N INFERTILITY N AIDS/HIV N FRACTURES N CHEMOTHERAPY / RADIATION N VISION/EYE PROBLEMS N LIVER DISEASE N MALE HYPOGONADISM N HYPERTENSION N ANXIETY DISORDER N BLOOD TRANSFUSION N ANEMIA/BLOOD DISORDER N CHRONIC EAR INFECTIONS N BRONCHITIS N TUBERCULOSIS N GLAUCOMA N FOOT PROBLEM N DIVERTICULITIS N SLEEP APNEA N CHICKENPOX N ALLERGIES/HAYFEVER N INFECTIOUS DISEASE N PROSTATE N HEART ARRHYTHMIA N INSOMNIA N HIGH CHOLESTEROL / HYPERLIPIDEMIA Y EYE PROBLEMS N HYPERTHYROIDISM N EATING DISORDER N NEUROLOGICAL PROBLEMS N EDEMA N CHRONIC PAIN SYNDROME N HYPOTHYROIDISM N CAROTID BLOCKAGE N CONSTIPATION N BACK / NECK PROBLEMS N HAVE YOU BEEN HOSPITALIZED OR SEEN IN TH E ER IN THE PAST YEAR ? N ATHEROSCLEROSIS N BREAST PROBLEMS N DIALYSIS N ECZEMA N FIBROMYALGIA N OSTEOPOROSIS N ARTHRITIS N NO SIGNIFICANT PAST MEDICAL HISTORY N APPENDICITIS N DIABETES, TYPE N BAD TEETH N HEARTBURN / REFLUX N ADD/ADHD N AUTISM SPECTRUM DISORDER (ASD) N HEPATITIS / LIVER DISEASE N PULMONARY DISEASE N GOUT N SLEEP DISORDER N ALZHEIMER'S DISEASE N PAIN N DEMENTIA N HERPES N SEIZURES/EPILEPSY N HEADACHES/MIGRAINES N VASCULAR DISEASE N PACEMAKER N DIZZINESS N HEART DISEASE/HEART PROBLEMS N KIDNEY DISEASE N SCARLET FEVER N MULTIPLE SCLEROSIS N DEVELOPMENTAL OR BEHAVIORAL DISORDERS N MENTAL DISORDER/ILLNESS N CANCER: SPECIFY N CARDIAC ARRHYTHMIA N PNEUMONIA N ATRIAL FIBRILLATION N Gall Stones N PULMONARY EMBOLISM N AUTOIMMUNE DISEASE N Gynecological History Statement/Question Response Current Control Method Menopause Breast Problems no Obstetrics History GPAL:G 0 P 0 0 0 0 Immunizations Vaccine Type Date Status Note Provider Mal cisneros and Address Organization Details Recorded Time COVID-19, mRNA, LNP-S, PF, 100 mcg/0.5mL dose or 50 mcg/0.25mL dose 01/11/2021 completed PEDRO Saucedo [employer] [facility] [employer] 04/22/2023 11:33:22 COVID-19, mRNA, LNP-S, PF, 100 mcg/0.5mL dose or 50 mcg/0.25mL dose 12/11/2020 completed PEDRO Saucedo [facility] [employer] 04/22/2023 11:33:22 Influenza, high-dose, quadrivalent, PF 08/14/2022 completed Not Available [facility] 3 12:52:29 Influenza, high-dose, quadrivalent, PF 08/22/2021 completed Not Available [facility] 3 12:52:29 Influenza, high-dose, quadrivalent, PF 07/11/2020 completed Not Available [facility] 3 12:52:29 Past Encounters Encounter ID Performer Location Encounter Start Date Encounter Closed Date Diagnosis/Indication Diagnosis SNOMED-CT Code Diagnosis ICD10 Code Diagnosis Note [id number] [facility] Primary Care [address] [place] [address] 01/04/2021 00:00:00 01/08/2021 18:59:27 [id number] [facility] [place] [address] [place] [address] 04/12/2021 00:00:00 05/04/2021 11:00:57 [id number] [facility] [place] [address] [place] [address] 08/22/2021 00:00:00 09/04/2021 10:20:10 [id number] [facility] [place] [address] [place] [address] 09/27/2021 00:00:00 09/27/2021 09:33:49 [id number] [facility] [place] [address] [place] [address] 11/28/2021 00:00:00 11/28/2021 14:04:08 [id number] [facility] [place] [address] [place] [address] 08/07/2022 00:00:00 08/07/2022 15:26:15 [id number] [facility] [place] [address] [place] [address] 08/14/2022 00:00:00 09/11/2022 10:06:20 [id number] [facility] [place] [address] [place] [address] 11/19/2022 00:00:00 11/19/2022 11:33:01 [id number] Estella Carrasquillo MD [facility] [place] [address] [place] [address] 01/16/2023 12:36:49 01/16/2023 13:17:30 Renewal of prescription 040174177 Z76.0 Degenerati on of lumbar intervertebral disc 26734692 M51.36 [id number] Estella Carrasquillo MD [facility] [place] [address] [place] [address] 01/27/2023 16:52:58 01/27/2023 17:29:54 Syncope [id number] R55 [id number] Estella Carrasquillo MD [facility] Primary Care [facility] [address] [facility] [address] [place] [address] 02/06/2023 17:16:00 02/06/2023 17:58:59 [id number] Estella Carrasquillo MD [facility] Primary Care [facility] [address] [facility] [address] [place] [address] 03/31/2023 10:06:57 03/31/2023 10:39:10 Palpitations 82630805 R00.2 Recheck labsShe will reach out to her cardiologi st to see if they want to do a heart monitorEch o and carotid doppler were essentiall y normalMRI showed nonspecifi c white matter changes-co ntinue good blood pressure control and statin [id number] Estella Carrasquillo MD [facility] Primary Care [facility] [address] [facility] [address] [place] [place] [address] 04/22/2023 11:14:03 04/22/2023 11:34:08 [id number] Estella Carrasquillo MD [facility] Primary Care [facility] [address] [facility] [address] [place] [address] 04/28/2023 12:20:56 04/28/2023 13:09:01 Essential hypertension 19363903 I10 in good control Palpitations 42205953 R0 0.2 will f/u with cardiology no further episodes Degenerati on of lumbar intervertebral disc 22399956 M51.36 Hypothyroidism 79062638 E03.9 Hyperlipidemia 02200136 E78.5 [id number] Estella Carrasquillo MD [facility] [place] [address] [facility] [address] [place] [address] 05/29/2023 11:53:26 05/29/2023 12:28:22 Dizziness 166199472 R42 resolved, f/u prn Dietary ma nagement surveillance 544129362 Z71.3 sample given of moujaro 2.5 mg sc qweekrevie wed potential med s/ept aware that further samples might not be available [id number] Estella Carrasquillo MD [facility] Primary [place] [address] [place] [address] 09/08/2023 10:01:18 09/08/2023 10:31:58 [id number] Estella Carrasquillo MD [facility] Primary Care [place] [address] [place] [address] 09/09/2023 08:20:27 09/09/2023 08:58:29 Serum creatinine above reference range 395007189 R79.89 persistent elevations of creatinine nephrology referral given [id number] Estella Carrasquillo MD [facility] Primary Care [facility] [address] [facility] [address] [place] [address] 11/12/2023 13:56:58 11/12/2023 14:22:11 [id number] Estella Carrasquillo MD [facility] Primary Care [facility] [address] [facility] [address] [place] [address] 12/19/2023 10:58:22 12/19/2023 12:13:11 Essential hypertension 10601231 I10 in good control Hyperlipidemia 05428717 E78.5 Hypothyroidism 56823486 E03.9 Dyslipidemia 411162426 E 78.5 Z79.899 Vitamin D deficiency 347 84884 E55.9 Hyperglycemia 66369671 R 73.9 Degenerati on of lumbar intervertebral disc 28621030 M51.36 refill pain medsshe uses these as prescribed has to avoid nsaids due to renal function per her nephrologi st [id number] Estella Carrasquillo MD [facility] Primary Care [place] [address] [facility] [address] [place] [address] 12/23/2023 15:08:48 12/23/2023 15:27:45 [id number] Cate Bob [facility] Primary Care [facility] [address] [facility] [address] [place] [address] 01/15/2024 15:21:14 01/15/2024 15:52:13 Blood in urine 44035988 R31.9 [id number] RADHA Hernandes [facility] Primary Care [facility] [address] [place] [address] 03/19/2024 09:48:22 03/19/2024 10:26:44 [facility] 27292431 E03.9 currently taking 75 mcg Recurrent falls 99625566 2 R29.6 -fell 3 times in the last 2 weeks-decl [facility] physical therapy at this time Skin lesion 69369529 L98 .9 noted to left mid back Degenerati on of lumbar intervertebral disc 37386457 M51.36 Drug of abuse screen 897 44978 Z02.83 does not use hydrocodon e often, last time was 03/15 [id number] JACOB HernandesP-C [facility] [place] [facility] [address] [facility] [address] [place] [address] 03/23/2024 16:02:27 03/23/2024 16:28:20 Health Concerns Section Related Observation LastModified by Organization Detai ls LastModified Time None Recorded Concern Status LastModified by Organization Details LastModified Time None Recorded Advance Directives Directive N: Payers Encounter Date Sequence Insurance Name Policy Number Policy Mcintosh Covered Member ID Mcintosh Member ID Guarantor Name 12/19/2023 1 [facility] (MEDICARE REPLACEMENT/A DVANTAGE - HMO) [id number] McMannis [id number] Coretta S McMannis 12/23/2023 1 [facility] (MEDICARE REPLACEMENT/A DVANTAGE - HMO) [id number] Coretta S McMannis [id number] Coretta S McMannis 01/15/2024 1 [facility] (MEDICARE REPLACEMENT/A DVANTAGE - HMO) [id number] Coretta S McMannis [id number] Coretta S McMannis 03/19/2024 1 [facility] (MEDICARE REPLACEMENT/A DVANTAGE - HMO) [id number] [address] S McMannis [id number] Coretta S McMannis 03/23/2024 1 [facility] (MEDICARE REPLACEMENT/A DVANTAGE - HMO) [id number] Lyon S McMannis [id number] Coretta S McMannis Notes Date Note Type Note Provider Name and Address Organization Details Recorded Time 12/19/2023 text/html saw Dr. Nance and they d/c her diclofenac due to renal function. Her pain is significantly increased off of it. Estella Carrasquillo MD [address] [facility] [place] [address], [place], [address], [employer] [facility] 01/08/2024 08:16:12 03/19/2024 text/html pt is here for f/u JACOB SmithP-C [address] [place] [address], [place], [address], Mobile Complete 03/19/2024 10:23:09 OBGyn Episode No OBEpisode recorded.
--- OUTSIDE RECORDS SUMMARY | 2025-01-12 13:44 | XMS_ITS | Referral Summary ---
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 Problems Problem Noted Date Diagnosed Date Pure hypercholesterolemia 02/26/2021 Other chest pain 01/15/2021 Essential hypertension 01/15/2021 Lipid screening 01/15/2021 TAM (dyspnea on exertion) 01/15/2021 Abnormal EKG 01/15/2021 Social History Tobacco Use Types Packs/Day Years Used Date Smoking Tobacco: Former Smokeless Tobacco: Never Tobacco Cessation:Counseling Given: Not Answered Comments Unknown Sex and Gender Information Value Date Recorded Sex Assigned at Not on file Legal Sex Female 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 Gender Identity Not on file Sexual Orientation Not on file Last Filed Vital Signs Vital Sign Reading Time Taken Comments Blood Pressure 110/70 09/13/2024 12:05 PM SINGLE WIRE SAW OPERATOR Pulse 66 09/13/2024 12:05 PM SINGLE WIRE SAW OPERATOR Temperature - - Respiratory Rate 18 09/13/2024 12:05 PM SINGLE WIRE SAW OPERATOR Oxygen Saturation 98% 03/03/2023 8:11 AM CDT Inhaled Oxygen Concentration - - Weight 82.6 kg (182 lb) 09/13/2024 12:05 PM SINGLE WIRE SAW OPERATOR Height 162.6 cm (5' 4 ) 09/13/2024 12:05 PM SINGLE WIRE SAW OPERATOR Body Mass Index 31.24 09/13/2024 12:05 PM SINGLE WIRE SAW OPERATOR Plan of Treatment Not on file Procedures Procedure Name Priority Date/Time Associated Diagnosis Comments SCAN - LABS 10/28/2024 3:43 AM SINGLE WIRE SAW OPERATOR from Last 3 Months Results * SCAN - LABS (10/28/2024 3:43 AM SINGLE WIRE SAW OPERATOR) Carlos Cotton MD Final Result from Last 3 Months Insurance [facility] MEDICARE ADV[facility]AGE [facility] Address: [address] [address] [place] [address] [facility] MEDICARE ADVANTAGE [facility] Address: [address] [address] [place] [address] Care Teams Cylinder Loader Relationship Specialty Start Date End Date Carlos Terry MD [address] [place] [address] PCP - General Family Medicine 09/13/24
[2025-01-12 13:49] LABS: Parathyroid Intact 39.1 pg/mL (14.5-75.2)
[2025-01-12 13:49] LABS: LDL Cholesterol Direct 62 mg/dL
[2025-01-12 14:22] LABS: Total Protein Urine Random 8 mg/dL
[2025-01-12 15:29] LABS: Vitamin D 25 Hydroxy 43.3 ng/mL
== END 2025-01-12 12:35 | disposition home or self-care (01) ==
LOC: ANHLAB 12:35
PROVIDERS: PCP Family Medicine; Visit Provider Internal Medicine Nephrology
DX: I12.9 Hypertensive chronic kidney disease with stage 1 through stage 4 chronic kidney disease, or unspecified chronic kidney disease (principal); N18.32 Chronic kidney disease, stage 3b; N25.81 Secondary hyperparathyroidism of renal origin; E55.9 Vitamin D deficiency, unspecified; E78.5 Hyperlipidemia, unspecified; E03.9 Hypothyroidism, unspecified
CPT/HCPCS: 36415; 80053; 80061; 82306; 82570; 83970; 84100; 84156; 84443; 85027

== ENCOUNTER 2025-02-24 08:03 | Outpatient (CLI) | payer MEDICARE, SELFPAY ==
--- NOTE | ~2025-02-24 | MM_ITS ---
EXAMINATION: MM screening [facility] BI w [facility] HISTORY: Screening TECHNIQUE: Craniocaudal and mediolateral oblique 3-D tomosynthesis images were obtained and synthetic 2-D images were generated. CAD analysis was submitted and interpreted. COMPARISON: Comparison to multiple prior studies sequentially, with oldest reviewed study dated 05/2015. BREAST PARENCHYMAL COMPOSITION: Not dense: There are scattered areas of fibroglandular density. FINDINGS: There is no evidence of suspicious mass, calcification, or architectural distortion to sugg est malignancy in either breast. There has been no suspicious interval change. IMPRESSION: 1. No mammographic evidence of malignancy. 2. Recommend routine screening mammography in one year. BI-RADS Category 1: Negative Reviewed, dictated and finalized at location A.
--- OUTSIDE RECORDS SUMMARY | 2025-02-24 08:11 | XMS_ITS | Clinical Summary ---
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 Active Active Problems Problem Noted Date Diagnosed Date Pure hypercholesterolemia 02/26/2021 Other chest pain 01/15/2021 Essential hypertension 01/15/2021 Lipid screening 01/15/2021 TAM (dyspnea on exertion) 01/15/2021 Abnormal EKG 01/15/2021 Surgical History Surgery Date Site/Laterality Comments KNEE [...] on file Legal Sex 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 Gender Identity Not on file Sexual Orientation Not on file Obstetrics History Last Filed Vital Signs Vital Sign Reading Time Taken Comments Blood Pressure 110/70 09/13/2024 12:05 PM GOLF CART MAKER Pulse 66 09/13/2024 12:05 PM GOLF CART MAKER Temperature - - Respiratory Rate 18 09/13/2024 12:05 PM GOLF CART MAKER Oxygen Saturation 98% 03/03/2023 8:11 AM CDT Inhaled Oxygen Concentration - - Weight 82.6 kg (182 lb) 09/13/2024 12:05 PM GOLF CART MAKER Height 162.6 cm (5' 4 ) 09/13/2024 12:05 PM GOLF CART MAKER Body Mass Index 31.24 09/13/2024 12:05 PM GOLF CART MAKER Plan of Treatment Health Maintenance Due Date [...] 2025 07/11/2020, 08/03/2019, 07/18/2018, Additional history exists Insurance [facility] Address: [address] [address] [place] [address] [facility] MEDIC[facility] Address: [address] [place] [phone] Care Teams Tomography Technologist Relationship Specialty Start Date End Date Carlos Terry MD [facility] [place] [address] PCP - General Family Medicine 09/13/24
--- OUTSIDE RECORDS SUMMARY | 2025-02-24 08:11 | XMS_ITS | Data Portability ---
Author Organization [place] [facility], Main Office Address [address] [place] [address] Assessment No assessment recorded. Plan of Treatment Reminders Order Date Submit Date Provider Last Modified By Organization Details Last Modified Time Details Appointments None recorded. Lab unlisted lab - urine drug abuse panel 10 2023 024 [email or web address] 4 [facility] (Lab), [address] [place], [address], 16:35:15 TSH, serum or plasma 2023 024 [email or web address] [facility] (Lab), [address] [place], [address], 4 10:28:30 lipid panel, serum 2023 024 4 [facility] (Lab), [address] [place], [address], 4 12:43:55 hepatic function panel, serum 2023 024 [email or web address] 4 [facility] (Lab), [address] [place], [address], 4 12:44:12 lipid panel, serum 2023 024 [email or web address] 4 [facility] (Lab), [address] [place], [address], 4 12:43:06 hepatic function panel, serum 2023 024 [email or web address] 4 [facility] (Lab), [address] [place], [address], 4 12:43:22 HbA1c (hemoglobin A1c), blood 2023 024 4 [facility] (Lab), [address] [place], [address], 4 12:44:44 vitamin D3, 25-hydroxy, serum 2023 024 [email or web address] 4 [facility] (Lab), [address] [place], [address], 12:44:27 CBC w/ auto diff 2023 024 [email or web address] 4 [facility] (Lab), [address] [place], [address], 4 12:41:37 BMP, serum or plasma 2023 024 [email or web address] 4 [facility] (Lab), [address] [place], [address], 12:42:49 TSH, serum or plasma 2023 024 [email or web address] 4 [facility] (Lab), [address] [place], [address], 12:43:39 Referral pain management referral - Please call patient to schedule an appointment . Thank you. 2023 024 [email or web address] Devonte Mao, [address] [facility] [address], [place], [address], 09:22:[address] referral - Please call patient to schedule an appointment . Thank you. 2023 024 [email or web address] [facility], [facility] [place], [address], 09:19:42 Procedures None recorded. Surgeries None recorded. Imaging None recorded. Medication Orders hydrocodone 5 mg-acetamin ophen 325 mg tablet 2023 024 MAGALIE [facility], [address], [address], [id number], 11:45:23 Patient TargetsNo targets recorded. Patient InstructionsNo instructions recorded. Reason for Referral [employer] Referral for S kin lesion abnormal lesion to left mid back Please call patient to schedule an appointment. Thank you. Referring Physician: Raul Bravo [facility], Encounter Date: 03/19/2024 Pain Management Referral for Degeneration of lumbar intervertebral disc degeneration lumbar disc Please call patient to schedule an appointment. Thank you. Referring Physician: Raul Bravo [facility], Encounter Date: 03/19/2024 Results Created Date Observation Date Name Description Value Unit Range Abnormal Flag Note LastModifiedBy Organization Detail LastModifiedTime 12/19/1912/19/2023 CBC/C OMPLE TE BLD COUNT W/DIF F white blood cells 5.8 x10'3 /uL 4.2-10 .8 Not Available [facility] (Lab) [address] [place], [address], 12/19/2023 22:25:34 12/19/19 24 12/19/2023 CBC/C OMPLE TE BLD COUNT W/DIF F red blood cells 4.45 x10'6 /uL 3.80-5 .20 Not Available [facility] (Lab) [address] [place], [address], 12/19/2023 22:25:34 12/19/19 24 12/19/2023 CBC/C OMPLE TE BLD COUNT W/DIF F hemoglobin 13.4 g/dL 12.0-1 5.6 Not Available [facility] (Lab) [address] [place], [address], 12/19/2023 22:25:34 12/19/19 24 12/19/2023 CBC/C OMPLE TE BLD COUNT W/DIF F hematocrit 41.2 % 35.7-4 5.7 Not Available [facility] (Lab) [address] [place], [address], 12/19/2023 22:25:34 12/19/19 24 12/19/2023 CBC/C OMPLE TE BLD COUNT W/DIF F mean red cell volume 92.6 fL 82.0-9 9.0 Not Available [facility] (Lab) [address] [place], [address], 12/19/2023 22:25:34 12/19/19 24 12/19/2023 CBC/C OMPLE TE BLD COUNT W/DIF F mean red cell hemoglobin 30.1 pg 27.0-3 3.0 Not Available [facility] (Lab) [address] [place], [address], 12/19/2023 22:25:34 12/19/19 24 12/19/2023 CBC/C OMPLE TE BLD COUNT W/DIF F mean RBC HGB concentratio n 32.5 g/dL 31.0-3 6.0 Not Available [facility] (Lab) [address] [place], [address], 12/19/2023 22:25:34 12/19/19 24 12/19/2023 CBC/C OMPLE TE BLD COUNT W/DIF F red cell distribution width 13.0 % 11.8-1 5.5 Not Available [facility] (Lab) [address] [place], [address], 12/19/2023 22:25:34 12/19/19 24 12/19/2023 CBC/C OMPLE TE BLD COUNT W/DIF F platelets 207 x10'3 /uL 150-40 0 Not Available [facility] (Lab) [address] [place], [address], 12/19/2023 22:25:34 12/19/19 24 12/19/2023 CBC/C OMPLE TE BLD COUNT W/DIF F mean platelet volume 13.1 fL 9.0-12 .4 high Not Available [facility] (Lab) [address] [place], [address], 12/19/2023 22:25:34 12/19/19 24 12/19/2023 CBC/C OMPLE TE BLD COUNT W/DIF F neutrophils 63.1 % 39.0-7 2.0 Not Available [facility] (Lab) [address] [place], [address], 12/19/2023 22:25:34 12/19/19 24 12/19/2023 CBC/C OMPLE TE BLD COUNT W/DIF F lymphocytes 24.9 % 16.0-4 7.0 Not Available [facility] (Lab) [address] [place], [address], 12/19/2023 22:25:34 12/19/19 24 12/19/2023 CBC/C OMPLE TE BLD COUNT W/DIF F monocytes 7.5 % 5.0-12 .0 Not Available [facility] (Lab) [address] [place], [address], 12/19/2023 22:25:34 12/19/19 24 12/19/2023 CBC/C OMPLE TE BLD COUNT W/DIF F eosinophils 3.3 % 1.0-7. 0 Not Available [facility] (Lab) [address] [place], [address], 12/19/2023 22:25:34 12/19/19 24 12/19/2023 CBC/C OMPLE TE BLD COUNT W/DIF F basophils 1.0 % 0.0-2. 0 Not Available [facility] (Lab) [address] [place], [address], 12/19/2023 22:25:34 12/19/19 24 12/19/2023 CBC/C OMPLE TE BLD COUNT W/DIF F immature granulocytes 0.2 % 0.00-0 .50 Not Available [facility] (Lab) [address] [place], [address], 12/19/2023 22:25:34 12/19/19 24 12/19/2023 CBC/C OMPLE TE BLD COUNT W/DIF F neutrophils, absolute count 3.68 x10'3 /uL 1.5-8. 0 Not Available [facility] (Lab) [address] [place], [address], 12/19/2023 22:25:34 12/19/19 24 12/19/2023 CBC/C OMPLE TE BLD COUNT W/DIF F lymphocytes, absolute count 1.45 x10'3 /uL 1.07-3 .43 Not Available [facility] (Lab) [address] [place], [address], 12/19/2023 22:25:34 12/19/19 24 12/19/2023 CBC/C OMPLE TE BLD COUNT W/DIF F monocytes, absolute count 0.44 x10'3 /uL 0.29-0 .99 Not Available [facility] (Lab) [address] [place], [address], 12/19/2023 22:25:34 12/19/19 24 12/19/2023 CBC/C OMPLE TE BLD COUNT W/DIF F eosinophils, absolute count 0.19 x10'3 /uL 0.02-0 .53 Not Available [facility] (Lab) [address] [place], [address], 12/19/2023 22:25:34 12/19/19 24 12/19/2023 CBC/C OMPLE TE BLD COUNT W/DIF F basophils, absolute count 0.06 x10'3 /uL 0.01-0 .08 Not Available [facility] (Lab) [address] [place], [address], 12/19/2023 22:25:34 12/19/19 24 12/19/2023 CBC/C OMPLE TE BLD COUNT W/DIF F immature granulocytes ,absolute 0.01 x10'3 /uL 0.00-0 .05 Not Available [facility] (Lab) [address] [place], [address], 12/19/2023 22:25:34 12/19/19 24 12/19/2023 CBC/C OMPLE TE BLD COUNT W/DIF F nucleated red blood cells 0.0 % -0 Not Available [facility] (Lab) [address] [place], [address], 12/19/2023 22:25:34 12/19/19 24 12/19/2023 CBC/C OMPLE TE BLD COUNT W/DIF F NRBC# 0.00 x10'3 /uL Not Available [facility] (Lab) [address] [place], [address], 12/19/2023 22:25:34 12/19/19 24 12/19/2023 CBC/C OMPLE TE BLD COUNT W/DIF F large platelets OCCASI ONAL Not Available [facility] (Lab) [address] [place], [address], 12/19/2023 22:25:34 12/19/19 24 12/19/2023 BASIC METAB OLIC PANEL sodium 138 mmol/ L 137-14 5 Not Available [facility] (Lab) [address] [place], [address], 12/19/2023 21:37:53 12/19/19 24 12/19/2023 BASIC METAB OLIC PANEL potassium 3.8 mmol/ L 3.5-5. 1 Not Available [facility] (Lab) [address] [place], [address], 12/19/2023 21:37:53 12/19/19 24 12/19/2023 BASIC METAB OLIC PANEL chloride 103 mmol/ L 98-107 Not Available [facility] (Lab) [address] [place], [address], 12/19/2023 21:37:53 12/19/19 24 12/19/2023 BASIC METAB OLIC PANEL carbon dioxide 29 mmol/ L 22-30 Not Available [facility] (Lab) [address] [place], [address], 12/19/2023 21:37:53 12/19/19 24 12/19/2023 BASIC METAB OLIC PANEL anion gap 9.8 mmol/ L 14-22 low Not Available [facility] (Lab) [address] [place], [address], 12/19/2023 21:37:53 12/19/19 24 12/19/2023 BASIC METAB OLIC PANEL glucose 86 mg/dL 70-99 Not Available [facility] (Lab) [address] [place], [address], 12/19/2023 21:37:53 12/19/19 24 12/19/2023 BASIC METAB OLIC PANEL BUN 24 mg/dL 8-19 high Not Available [facility] (Lab) [address] [place], [address], 12/19/2023 21:37:53 12/19/19 24 12/19/2023 BASIC METAB OLIC PANEL creatinine 1.17 mg/dL 0.66-1 .25 Not Available [facility] (Lab) [address] [place], [address], 12/19/2023 21:37:53 12/19/19 24 12/19/2023 BASIC METAB OLIC PANEL GFR 45 Refer ence Range : [place] ge GFR Healt hy Adult : >60 [...] is less accur ate, requi ring clini edng judgm ent on a case- by-ca se [...] calcu lator is avail able on the [facility] websi te: https ://kera portillo.audie yu/liseth nieto s/jean-pierre qi/gf r_cal culat or Not Available [facility] (Lab) [address] [place], [address], 12/19/2023 21:37:53 12/19/19 24 12/19/2023 BASIC METAB OLIC PANEL calcium 9.6 mg/dL 8.4-10 .2 Not Available [facility] (Lab) [address] [place], [address], 12/19/2023 21:37:53 12/19/19 24 12/19/2023 LIPID PANEL cholesterol 130 mg/dL 140-19 9 low NIH EDGAR NSUS RECOM MENDA TION FOR CLEOPATRA STERO L: ADULT CHILD LOW RISK: <200 <170 BORDE RLINE : <200- 239 ----- HIGH RISK: >240 >200 Not Available [facility] (Lab) [address] [place], [address], 12/19/2023 21:37:58 12/19/19 24 12/19/2023 LIPID PANEL triglyceride s 70 mg/dL 0-150 NIH EDGAR NSUS REPOR T RECOM MENDA TION FOR TRIGL YCERI THOR: ADULT CHILD LOW RISK: <150 ----- BODER LINE: 150-1 99 ----- HIGH RISK: >200 ----- Not Available [facility] (Lab) [address] [place], [address], 12/19/2023 21:37:58 12/19/19 24 12/19/2023 LIPID PANEL HDL cholesterol 64 mg/dL 40- Not Available [facility] (Lab) [address] [place], [address], 12/19/2023 21:37:58 12/19/19 24 12/19/2023 LIPID PANEL [...] WILL NOT BE REPOR MITESH. Not Available [facility] (Lab) [address] [place], [address], 12/19/2023 21:37:58 12/19/19 24 12/19/2023 HEPAT IC/LI MESSI PANEL alkaline phosphatase 80 U/L 38-126 Not Available [facility] (Lab) [address] [place], [address], 12/19/2023 21:38:00 12/19/19 24 12/19/2023 HEPAT IC/LI MESSI PANEL alanine aminotransfe rase 19 U/L 0-35 Not Available [facility] (Lab) [address] [place], [address], 12/19/2023 21:38:00 12/19/19 24 12/19/2023 HEPAT IC/LI MESSI PANEL aspartate aminotransfe rase 28 U/L 15-37 Not Available [facility] (Lab) [address] [place], [address], 12/19/2023 21:38:00 12/19/19 24 12/19/2023 HEPAT IC/LI MESSI PANEL bilirubin, total 1.00 mg/dL 0.20-1 .30 Not Available [facility] (Lab) [address] [place], [address], 12/19/2023 21:38:00 12/19/19 24 12/19/2023 HEPAT IC/LI MESSI PANEL bilirubin, conjugated (direct) 0.00 mg/dL 0.00-0 .30 Not Available [facility] (Lab) [address] [place], [address], 12/19/2023 21:38:00 12/19/19 24 12/19/2023 HEPAT IC/LI MESSI PANEL biliurubin,u ncong. (indirect) 0.70 mg/dL 0.00-1 .1 Not Available [facility] (Lab) [address] [place], [address], 12/19/2023 21:38:00 12/19/19 24 12/19/2023 HEPAT IC/LI MESSI PANEL total protein 6.8 g/dL 6.3-8. 2 Not Available [facility] (Lab) [address] [place], [address], 12/19/2023 21:38:00 12/19/19 24 12/19/2023 HEPAT IC/LI MESSI PANEL albumin 4.1 g/dL 3.0-4. 4 Not Available [facility] (Lab) [address] [place], [address], 12/19/2023 21:38:00 12/19/19 24 12/19/2023 HEPAT IC/LI MESSI PANEL globulin 2.7 g/dL 2.6-4. 2 Not Available [facility] (Lab) [address] [place], [address], 12/19/2023 21:38:00 12/19/19 24 12/19/2023 HEPAT IC/LI MESSI PANEL A/G ratio 1.5 ratio 1.0-2. 0 Not Available [facility] (Lab) [address] [place], [address], 12/19/2023 21:38:00 12/19/19 24 12/19/2023 HEMOG LOBIN A1C HA1C 5.5 % 4.0-6. 0 Diabe chen Scree epi Crite isi: <5.7% Consi stent with absen ce of diabe chen 5.7-6 .4% Consi stent with incre ased risk for diabe chen (pred iabet es) >OR=6 .5% Consi stent with diabe chen REFER ENCE: Diabe chen Care 2016, 39(Talley ppl.1 ):s13 -s22 Not Available [facility] (Lab) [address] [place], [address], 12/19/2023 22:16:48 12/19/19 24 12/19/2023 VITAM IN D 25-HY DROXY [id number] 26.1 NG/mL 30-100 low Vitam in D Statu s: Defic ient: <20 ng/mL Insuf ficie nt: 20-29 ng/mL Suffi cient : 30-10 0 ng/mL Not Available [facility] (Lab) [address] [place], [address], 12/19/2023 22:19:02 12/19/19 24 12/19/2023 TSH thyroid-stim ulating hormone 0.134 uIU/m L 0.465- 4.680 low Not Available [facility] (Lab) [address] [place], [address], 12/19/2023 22:20:40 12/23/19 24 12/23/2023 URINA LYSIS COMPL ETE/I RIS W/RFX color LIGHT- YELLOW Not Available [facility] (Lab) [address] [place], [address], 12/23/2023 19:16:51 12/23/19 24 12/23/2023 URINA LYSIS COMPL ETE/I RIS W/RFX appear CLEAR Not Available [facility] (Lab) [address] [place], [address], 12/23/2023 19:16:51 12/23/19 24 12/23/2023 URINA LYSIS COMPL ETE/I RIS W/RFX specific gravity 1.012 1.001- 1.030 Not Available [facility] (Lab) [address] [place], [address], 12/23/2023 19:16:51 12/23/19 24 12/23/2023 URINA LYSIS COMPL ETE/I RIS W/RFX pH 5.0 pH_un its 5.0-9. 0 Not Available [facility] (Lab) [address] [place], [address], 12/23/2023 19:16:51 12/23/19 24 12/23/2023 URINA LYSIS COMPL ETE/I RIS W/RFX leukocytes NEGATI VE mikayla/u L negati ve- Not Available [facility] (Lab) [address] [place], [address], 12/23/2023 19:16:51 12/23/19 24 12/23/2023 URINA LYSIS COMPL ETE/I RIS W/RFX nitrite NEGATI VE negati ve- Not Available [facility] (Lab) [address] [place], [address], 12/23/2023 19:16:51 12/23/19 24 12/23/2023 URINA LYSIS COMPL ETE/I RIS W/RFX protein NEGATI VE mg/dL negati ve- Not Available [facility] (Lab) [address] [place], [address], 12/23/2023 19:16:51 12/23/19 24 12/23/2023 URINA LYSIS COMPL ETE/I RIS W/RFX glucose NORMAL mg/dL normal - Not Available [facility] (Lab) [address] [place], [address], 12/23/2023 19:16:51 12/23/19 24 12/23/2023 URINA LYSIS COMPL ETE/I RIS W/RFX ketones NEGATI VE mg/dL negati ve- Not Available [facility] (Lab) [address] [place], [address], 12/23/2023 19:16:51 12/23/19 24 12/23/2023 URINA LYSIS COMPL ETE/I RIS W/RFX urobilinogen NORMAL mg/dL normal - Not Available [facility] (Lab) [address] [place], [address], 12/23/2023 19:16:51 12/23/19 24 12/23/2023 URINA LYSIS COMPL ETE/I RIS W/RFX bilirubin NEGATI VE mg/dL negati ve- Not Available [facility] (Lab) [address] [place], [address], 12/23/2023 19:16:51 12/23/19 24 12/23/2023 URINA LYSIS COMPL ETE/I RIS W/RFX blood 0.03 mg/dL negati ve- abnormal Not Available [facility] (Lab) [address] [place], [address], 12/23/2023 19:16:51 12/23/19 24 12/23/2023 URINA LYSIS COMPL ETE/I RIS W/RFX white blood cells 0-8 /i??h pfi?? 0-8 Not Available [facility] (Lab) [address] [place], [address], 12/23/2023 19:16:51 12/23/19 24 12/23/2023 URINA LYSIS COMPL ETE/I RIS W/RFX red blood cells 0-4 /i??h pfi?? 0-4 Not Available [facility] (Lab) [address] [place], [address], 12/23/2023 19:16:51 12/23/19 24 12/23/2023 URINA LYSIS COMPL ETE/I RIS W/RFX bacteria NONE Not Available [facility] (Lab) [address] [place], [address], 12/23/2023 19:16:51 12/23/19 24 12/23/2023 URINA LYSIS COMPL ETE/I RIS W/RFX mucous OCCASI ONAL /i??l pfi?? abnormal Not Available [facility] (Lab) [address] [place], [address], 12/23/2023 19:16:51 12/23/19 24 12/23/2023 URINA LYSIS COMPL ETE/I RIS W/RFX squamous epithelial OCCASI ONAL /i??l pfi?? abnormal Not Available [facility] (Lab) [address] [place], [address], 12/23/2023 19:16:51 12/23/19 24 12/23/2023 URINA LYSIS COMPL ETE/I RIS W/RFX hyaline cast MODERA TE /i??l pfi?? none seen- abnormal Not Available [facility] (Lab) [address] [place], [address], 12/23/2023 19:16:51 01/15/20 24 01/15/2024 URINA LYSIS COMPL ETE/I RIS W/RFX color YELLOW Not Available [facility] (Lab) [address] [place], [address], 01/15/2024 18:58:39 01/15/20 24 01/15/2024 URINA LYSIS COMPL ETE/I RIS W/RFX appear EXTRA TURBID abnormal Not Available [facility] (Lab) [address] [place], [address], 01/15/2024 18:58:39 01/15/20 24 01/15/2024 URINA LYSIS COMPL ETE/I RIS W/RFX specific gravity 1.019 1.001- 1.030 Not Available [facility] (Lab) [address] [place], [address], 01/15/2024 18:58:39 01/15/20 24 01/15/2024 URINA LYSIS COMPL ETE/I RIS W/RFX pH 6.5 pH_un its 5.0-9. 0 Not Available [facility] (Lab) [address] [place], [address], 01/15/2024 18:58:39 01/15/20 24 01/15/2024 URINA LYSIS COMPL ETE/I RIS W/RFX leukocytes NEGATI VE mikayla/u L negati ve- Not Available [facility] (Lab) [address] [place], [address], 01/15/2024 18:58:39 01/15/20 24 01/15/2024 URINA LYSIS COMPL ETE/I RIS W/RFX nitrite NEGATI VE negati ve- Not Available [facility] (Lab) [address] [place], [address], 01/15/2024 18:58:39 01/15/20 24 01/15/2024 URINA LYSIS COMPL ETE/I RIS W/RFX protein 30 mg/dL negati ve- abnormal Not Available [facility] (Lab) [address] [place], [address], 01/15/2024 18:58:39 01/15/20 24 01/15/2024 URINA LYSIS COMPL ETE/I RIS W/RFX glucose NORMAL mg/dL normal - Not Available [facility] (Lab) [address] [place], [address], 01/15/2024 18:58:39 01/15/20 24 01/15/2024 URINA LYSIS COMPL ETE/I RIS W/RFX ketones NEGATI VE mg/dL negati ve- Not Available [facility] (Lab) [address] [place], [address], 01/15/2024 18:58:39 01/15/20 24 01/15/2024 URINA LYSIS COMPL ETE/I RIS W/RFX urobilinogen 2 mg/dL normal - abnormal Not Available [facility] (Lab) [address] [place], [address], 01/15/2024 18:58:39 01/15/20 24 01/15/2024 URINA LYSIS COMPL ETE/I RIS W/RFX bilirubin NEGATI VE mg/dL negati ve- Not Available [facility] (Lab) [address] [place], [address], 01/15/2024 18:58:39 01/15/20 24 01/15/2024 URINA LYSIS COMPL ETE/I RIS W/RFX blood 0.06 mg/dL negati ve- abnormal Not Available [facility] (Lab) [address] [place], [address], 01/15/2024 18:58:39 01/15/20 24 01/15/2024 URINA LYSIS COMPL ETE/I RIS W/RFX color YELLOW Not Available [facility] (Lab) [address] [place], [address], 01/15/2024 19:04:38 01/15/20 24 01/15/2024 URINA LYSIS COMPL ETE/I RIS W/RFX appear EXTRA TURBID abnormal Not Available [facility] (Lab) [address] [place], [address], 01/15/2024 19:04:38 01/15/20 24 01/15/2024 URINA LYSIS COMPL ETE/I RIS W/RFX specific gravity 1.019 1.001- 1.030 Not Available [facility] (Lab) [address] [place], [address], 01/15/2024 19:04:38 01/15/20 24 01/15/2024 URINA LYSIS COMPL ETE/I RIS W/RFX pH 6.5 pH_un its 5.0-9. 0 Not Available [facility] (Lab) [address] [place], [address], 01/15/2024 19:04:38 01/15/20 24 01/15/2024 URINA LYSIS COMPL ETE/I RIS W/RFX leukocytes NEGATI VE mikayla/u L negati ve- Not Available [facility] (Lab) [address] [place], [address], 01/15/2024 19:04:38 01/15/20 24 01/15/2024 URINA LYSIS COMPL ETE/I RIS W/RFX nitrite NEGATI VE negati ve- Not Available [facility] (Lab) [address] [place], [address], 01/15/2024 19:04:38 01/15/20 24 01/15/2024 URINA LYSIS COMPL ETE/I RIS W/RFX protein 30 mg/dL negati ve- abnormal Not Available [facility] (Lab) [address] [place], [address], 01/15/2024 19:04:38 01/15/20 24 01/15/2024 URINA LYSIS COMPL ETE/I RIS W/RFX glucose NORMAL mg/dL normal - Not Available [facility] (Lab) [address] [place], [address], 01/15/2024 19:04:38 01/15/20 24 01/15/2024 URINA LYSIS COMPL ETE/I RIS W/RFX ketones NEGATI VE mg/dL negati ve- Not Available [facility] (Lab) [address] [place], [address], 01/15/2024 19:04:38 01/15/20 24 01/15/2024 URINA LYSIS COMPL ETE/I RIS W/RFX urobilinogen 2 mg/dL normal - abnormal Not Available [facility] (Lab) [address] [place], [address], 01/15/2024 19:04:38 01/15/20 24 01/15/2024 URINA LYSIS COMPL ETE/I RIS W/RFX bilirubin NEGATI VE mg/dL negati ve- Not Available [facility] (Lab) [address] [place], [address], 01/15/2024 19:04:38 01/15/20 24 01/15/2024 URINA LYSIS COMPL ETE/I RIS W/RFX blood 0.06 mg/dL negati ve- abnormal Not Available [facility] (Lab) [address] [place], [address], 01/15/2024 19:04:38 01/15/20 24 01/15/2024 URINA LYSIS COMPL ETE/I RIS W/RFX white blood cells 0-8 /i??h pfi?? 0-8 Not Available [facility] (Lab) [address] [place], [address], 01/15/2024 19:04:38 01/15/20 24 01/15/2024 URINA LYSIS COMPL ETE/I RIS W/RFX red blood cells 5-10 /i??h pfi?? 0-4 abnormal Not Available [facility] (Lab) [address] [place], [address], 01/15/2024 19:04:38 01/15/20 24 01/15/2024 URINA LYSIS COMPL ETE/I RIS W/RFX bacteria FEW abnormal Not Available [facility] (Lab) [address] [place], [address], 01/15/2024 19:04:38 01/15/20 24 01/15/2024 URINA LYSIS COMPL ETE/I RIS W/RFX mucous FEW /i??l pfi?? abnormal Not Available [facility] (Lab) [address] [place], [address], 01/15/2024 19:04:38 01/15/20 24 01/15/2024 URINA LYSIS COMPL ETE/I RIS W/RFX squamous epithelial PACKED FIELD /i??l pfi?? abnormal Not Available [facility] (Lab) [address] [place], [address], 01/15/2024 19:04:38 01/15/20 24 01/15/2024 URINA LYSIS [id number]|2025-02-24 08:11:00|2025-02-24 08:10:00|XMS_ITS|BKG DAPATRICIAON|External Medical Summaries|[id number]|" Clinical Summary Created on: February 24, 2025 Coretta Ray : 1950 Sex: Female Author Organization [facility] Address [address] [place] [address] Care Team Providers Care Can Slider Name Role Phone Alexandr aCro MD Primary Care Provider [phone] Source Comments [facility],non-owned Affiliates and Associated Physician Practices is amultiple site organization consisting of ambulatory clinics and hospital sitesin [place], [place], [place] and [place]. This disclosure is being madepursuant to the Care Everywhere program and may not contain all information available regarding this patient. Last updated 18.[facility] Allergies Active Allergy Reactions Criticality Noted Date Comments Clarithromycin Urticaria Medium 11/27/2017 Hydrocodone Urticaria Medium 11/27/2017 Atorvastatin Rash Medium 11/27/2017 Medications * Be aware that medications may not be up to date on this document. Alwaysverify current medications with the patient. DICLOFENAC PO Active EZETIMIBE PO Active LEVOTHYROXINE SODIUM PO Active amLODIPine-vals martin-hctz (EXFORGE HCT) 5-160-25 MG tablet Take 1 tablet by mouth once daily Active benzonatate (TESSALON) 100 MG capsuleIndicati ons:Cough Take 1 capsule by mouth 3 times daily as needed for Cough Reasons: Cough 30 capsule 03/26/2018 Active Social History Tobacco Use Types Packs/Day Years Used Date Smoking Tobacco: Former Smokeless Tobacco: Never Comments:quit 25 years ago Comments Unknown Sex and Gender Information Value Date Recorded Sex Assigned at Not on file Legal Sex Female 2:56 AM [employer] Gender Identity Not on file Sexual Orientation [...] VACCINE ( - 2023-2 5 season) 2024 DEPRESSION SCREENING 10/13/2024 INFLUENZA VACCINE (Season Ended) 2025 Respiratory Syncytial Virus (RSV) Vaccine Pt: or [...] on patient's age to complete this topic Insurance [facility] MEDICARE Care Teams Can Slider Relationship Specialty Start Date End Date Alexandr Caro MD [address] [place] [address] PCP - General Internal Medicine 11/27/17 "
--- OUTSIDE RECORDS SUMMARY | 2025-02-24 08:11 | XMS_ITS | Referral Summary ---
Author [place] [facility] [place] [address] Address [address] [place] [address] Care Team Providers Care Tool Grinder Set Up Operator Gear Name Role Phone Carlos Terry MD Primary Care Provider [phone] Allergies Active Allergy Reactions Criticality Noted Date [...] 1 tablet (75 mcg total) by mouth urologist md before breakfast Active Active Problems Problem Noted [...] on file Legal Sex Female 2:06 AM SYSTEMS SUPPORT SPECIALIST Gender Identity Not on file Sexual Orientation Not on file Last Filed Vital Signs Vital Sign Reading Time Taken Comments Blood Pressure 110/70 09/13/2024 12:05 PM SYSTEMS SUPPORT SPECIALIST Pulse 66 09/13/2024 12:05 PM SYSTEMS SUPPORT SPECIALIST Temperature - - Respiratory Rate 18 09/13/2024 12:05 PM SYSTEMS SUPPORT SPECIALIST Oxygen Saturation 98% 03/03/2023 8:11 AM CDT Inhaled Oxygen Concentration - - Weight 82.6 kg (182 lb) 09/13/2024 12:05 PM SYSTEMS SUPPORT SPECIALIST Height 162.6 cm (5' 4 ) 09/13/2024 12:05 PM SYSTEMS SUPPORT SPECIALIST Body Mass Index 31.24 09/13/2024 12:05 PM SYSTEMS SUPPORT SPECIALIST Plan of Treatment Not on file Insurance MEDICARE ADVANTAGE C MEDICARE ADVANTAGE Care Teams Tool Grinder Set Up Operator Gear Relationship Specialty Start Date End Date Carlos Terry MD [facility] [place] [id number] PCP - General Family Medicine 09/13/24
== END 2025-02-24 08:04 | disposition home or self-care (01) ==
LOC: ANHIMG 08:07
PROVIDERS: PCP Nurse Practitioner Family; Visit Provider Family Medicine
DX: Z12.31 Encounter for screening mammogram for malignant neoplasm of breast (principal)
CPT/HCPCS: 77063; 77067

== ENCOUNTER 2025-07-20 08:40 | Outpatient (CLI) | payer MEDICARE, SELFPAY ==
[2025-07-20 09:13] LABS: Hematocrit 40.3 % (37.0-47.0); Hemoglobin 13.0 g/dL (12.0-15.0); Immature Granulocyte Percent A 0.4 % (0-0.5); Lymphocytes Absolute Auto 1.51 K/mm3 (0.9-3.2); Mean Corpuscular HGB Conc 32.3 g/dl (32-36); Mean Corpuscular Hemoglobin 29.9 pg (26-34); Mean Corpuscular Volume 92.6 fl (80-100); Nucleated Red Blood Cells Absolute Auto 0.000 K/mm3 (0.0-0.012); Nucleated Red Blood Cells Perc 0.0 % (0.0-0.2); Platelet Count Result 225 k/mm3 (150-375); Red Blood Count 4.35 M/mm3 (4.2-5.4); White Blood Count 6.7 K/mm3 (4.5-10.0)
[2025-07-20 10:12] LABS: Alanine Aminotransferase 32 U/L (6-35); Albumin Level 3.8 g/dL (3.5-5.1); Alkaline Phosphatase 86 U/L (38-126); Anion Gap 6 mmol/L (4-12); Aspartate Amino Transferase 34 U/L (14-36); Bilirubin,Total 1.2 mg/dL (0.2-1.3); Blood Urea Nitrogen 28 mg/dL (7-17); Calcium 8.8 mg/dL (8.4-10.2); Carbon Dioxide 30 mmol/L (22-30); Chloride 101 mmol/L (98-107); Cholesterol 142 mg/dL (0-200); Estimated Glomerular Filt Rate 37; Glucose 87 mg/dL (65-110); HDL Direct 51 mg/dL; Potassium 4.2 mmol/L (3.4-5.0); Sodium 137 mmol/L (137-145); Total Protein 6.9 g/dL (6.3-8.2); Triglycerides 94 mg/dL (<150)
[2025-07-20 10:48] LABS: Thyroid Stimulating Hormone 2.470 uIU/mL (0.465-4.680)
[2025-07-20 10:49] LABS: Total Protein Urine Random < 5 mg/dL
[2025-07-20 10:50] LABS: Ur Ttl Prot Creatinine Ratio < 0.02 mg/mg (0-0.20)
== END 2025-07-20 08:41 | disposition home or self-care (01) ==
PROVIDERS: PCP Family Medicine; Referring Provider Family Medicine; Visit Provider Internal Medicine Nephrology
DX: E78.5 Hyperlipidemia, unspecified (principal); E03.9 Hypothyroidism, unspecified; I12.9 Hypertensive chronic kidney disease with stage 1 through stage 4 chronic kidney disease, or unspecified chronic kidney disease; N18.32 Chronic kidney disease, stage 3b; R35.1 Nocturia
CPT/HCPCS: 36415; 80053; 80061; 82570; 84100; 84156; 84443; 85025